=== PATIENT | female | born 1975 | race Caucasian/White ===

== ENCOUNTER 2017-09-09 08:00 | Outpatient (CLI) | payer OTHER ==
[2017-09-09 12:42] LABS: BASOPHILS % (AUTO) 0.5 %; EOSINOPHILS # (AUTO) 0.1 10^3/uL (0.0-0.7); EOSINOPHILS % (AUTO) 2.5 %; HGB - HEMOGLOBIN 11.5 g/dL (12.0-16.0); LYMPHOCYTES # (AUTO) 1.3 10^3/uL (1.5-3.5); LYMPHOCYTES % (AUTO) 23.7 %; MEAN CORPUSCULAR VOLUME 78.6 fL (81.0-99.0); MEAN PLATELET VOLUME 8.8 fL (7.9-10.8); MONOCYTES # (AUTO) 0.3 10^3/uL (0.0-1.0); MONOCYTES % (AUTO) 5.4 %; NEUTROPHILS # (AUTO) 3.8 10^3/uL (1.5-6.6); NEUTROPHILS % (AUTO) 67.9 %; PLT - PLATELET COUNT 272 10^3/uL (130-450); RED BLOOD COUNT 4.42 10^6/uL (4.20-5.40); RED CELL DISTRIBUTION WIDTH 15.5 % (12.0-15.0); WHITE BLOOD COUNT 5.5 x10^3/uL (4.8-10.8)
[2017-09-09 12:49] LABS: ALBUMIN 4.1 g/dL (3.2-5.5); ALBUMIN/GLOBULIN RATIO 1.4 (1.0-2.2); ALKALINE PHOSPHATASE 57 IU/L (42-121); ALT ALANINE AMINOTRANSFERASE 15 IU/L (10-60); AST ASPARTATE AMINOTRANSFERASE 17 IU/L (10-42); BILIRUBIN,TOTAL 0.8 mg/dL (0.2-1.0); BUN - BLOOD UREA NITROGEN 11 mg/dL (6-20); CALCIUM 8.7 mg/dL (8.5-10.3); CARBON DIOXIDE - CO2 26 mmol/L (21-32); CHLORIDE 103 mmol/L (101-111); CHOL/HDL RATIO 5.5 (<4.4); CHOLESTEROL 181 mg/dL; CREATININE 0.8 mg/dL (0.4-1.0); GFR - MDRD 79 (>89); GLUCOSE 105 mg/dL (70-100); HDL CHOLESTEROL 33 mg/dL; LDL CHOLESTEROL,CALCULATED 117 mg/dL; LDL/HDL RATIO 3.5 (<4.4); SODIUM 135 mmol/L (135-145); VLDL CHOLESTEROL 31 mg/dL
== END 2017-09-09 08:01 ==
LOC: LAB.WCP 08:00
PROVIDERS: ATTEND Family Medicine
DX: Z00.00 Encounter for general adult medical examination without abnormal findings (principal); F41.8 Other specified anxiety disorders; E66.9 Obesity, unspecified
CPT/HCPCS: 36415; 80053; 80061; 83721; 84443; 85025

== ENCOUNTER 2018-02-04 10:24 | Emergency (ER) | payer OTHER ==
[2018-02-04 10:39] VITALS: BP 152/100
--- NOTE | 2018-02-04 11:05 | XRAY Report ---
Reason: crush injury to toe Procedure Date: 02/04/2018 Accession Number: [id number] / [id number] Procedure: XR - Toe(s) RT CPT Code: FULL RESULT: EXAM: RIGHT FIRST TOE RADIOGRAPHY EXAM DATE: 02/04/2018 10:52 AM. CLINICAL HISTORY: Crush injury to toe. COMPARISON: None. TECHNIQUE: 3 views. FINDINGS: Bones: No acute fracture is demonstrated. Joints: No dislocation or subluxation. Soft Tissues: Unremarkable. IMPRESSION: No acute osseous or articular abnormality. RADIA
--- NOTE | 2018-02-04 11:38 | ED Physician Documentation ---
PD HPI LOWER EXT INJURY - Stated complaint Stated Complaint: R BIG TOE INJ - Chief complaint Chief Complaint: Ext Problem - History obtained from History obtained from: Patient - History of Present Illness PD HPI LOW EXT INJURY LOCATION: Right, Toe Type of injury: Blunt / blow Where injury occurred: Work Timing - onset: Today - Additional information Additional information: The patient is a 43-year-old female who smashed her right big toe on filing cabinet that was being moved this morning while at work. She has had pain, particularly with ambulation since that time. She denies any other injuries. Review of Systems Skin: denies: Laceration (s) Musculoskeletal: reports: Extremity pain (Right big toe.), Pain with weight bearing Neurologic: denies: Focal weakness, Numbness PD PAST MEDICAL HISTORY - Past Medical History Endocrine/Autoimmune: None - Present Medications Home Medications: Ambulatory Orders Medication Instructions Recorded Confirmed No Known Home Medications 02/04/18 02/04/18 - Allergies Allergies/Adverse Reactions: Allergies Allergy/AdvReac Type Severity Reaction Status Date / Time codeine Allergy Nausea Verified 02/04/18 10:40 Sulfa (Sulfonamide Allergy Anaphylaxis Verified 02/04/18 10:40 Antibiotics) PD ED PE NORMAL - Vitals Vital signs reviewed: Yes (hypertensive) - General General: Alert and oriented X 3, Well developed/nourished - HEENT HEENT: Atraumatic - Respiratory Respiratory: No respiratory distress - Derm Derm: No rash - Extremities Extremities: Other (There is tenderness to palpation, and slight swelling of the distal phalanx of the right big toe. The medial distal corner of the toenail is broken. There is no tenderness to palpation at the proximal aspect of the toe, or of the foot. Distal neurovascular is intact.) - Neuro Neuro: Alert and oriented X 3, No motor deficit, No sensory deficit Results - Vitals Vitals: Oxygen O2 Source Room air - Rads (name of study) Right big toe Radiology: Prelim report reviewed, EMP read contemporaneously, See rad report (No acute osseous or articular abnormality.) PD MEDICAL DECISION MAKING - ED course Complexity details: reviewed results, re-evaluated patient, considered differential, d/w patient ED course: The patient's presentation is most consistent with contusion to the right great toe. There is no evidence of bony abnormality on radiographic imaging. I discussed with the patient the expected course of injury, symptomatic treatment and outpatient follow-up, as well as potentially worrisome signs or symptoms that should prompt reevaluation in the emergency department. A labor and industries form was completed. Departure - Departure Disposition: 01 Home, Self Care Clinical Impression: Contusion, toe Qualifiers: Encounter type: initial encounter Toe: great toe Laterality: right Condition: Stable Instructions: ED Contusion Lower Ext Follow-Up: Zaynab Adkins DO [Primary Care Provider] - Comments: Keep your right foot elevated as much of the time as possible for the next 2 days. Apply ice pack intermittently. You can use ibuprofen, up to 800 mg 3 times daily for its anti-inflammatory effect. Follow-up with your primary physician or return to the emergency department if you develop markedly increasing pain, any sign of infection, or otherwise worsening symptoms. Forms: Activity restrictions Discharge Date/Time: 02/04/18 12:03
== END 2018-02-04 12:03 | disposition home or self-care (01) ==
LOC: ED 10:24
DX: S90.111A Contusion of right great toe without damage to nail, initial encounter (principal); W23.0XXA Caught, crushed, jammed, or pinched between moving objects, initial encounter; Y99.0 Civilian activity done for income or pay
CPT/HCPCS: 1040M; 73660; 99282

== ENCOUNTER 2022-01-21 09:44 | Emergency (ER) | payer MEDICAID, OTHER ==
[2022-01-21 09:52] VITALS: BP 151/77
--- OUTSIDE RECORDS SUMMARY | 2022-01-21 10:35 | EXTERNAL MEDICAL SUMMARY RPT | Continuity of Care Document ---
:1975 Author Organization [facility] Address [address] [place] [address] Phone Allergies No information. Encounters No information. Functional Status No information. Immunizations No information. Medications No information. Problems No information. Procedures No information. Results/Labs test date author facility value unit interpret ation Result panel 1 (unknown) (no date) (unknown) (unknown) 0 /uL (unkn own) (unknown) (no date) (unknown) (unknown) 0.6 % (unkn own) (unknown) (no date) (unknown) (unknown) 12.8 g/dL (unkn own) (unknown) (no date) (unknown) (unknown) 1300 /uL (unkn own) (unknown) (no date) (unknown) (unknown) 15.0 % (unkn own) (unknown) (no date) (unknown) (unknown) 17.3 % (unkn own) (unknown) (no date) (unknown) (unknown) 2.1 % (unkn own) (unknown) (no date) (unknown) (unknown) 200 /uL (unkn own) (unknown) (no date) (unknown) (unknown) 28.2 PG (unkn own) (unknown) (no date) (unknown) (unknown) 34.0 % (unkn own) (unknown) (no date) (unknown) (unknown) 343 X10 3/uL (unkn own) (unknown) (no date) (unknown) (unknown) 37.6 % (unkn own) (unknown) (no date) (unknown) (unknown) 4.53 X10 6/uL (unkn own) (unknown) (no date) (unknown) (unknown) 4.7 % (unkn own) (unknown) (no date) (unknown) (unknown) 400 /uL (unkn own) (unknown) (no date) (unknown) (unknown) 6600 /uL (unkn own) (unknown) (no date) (unknown) (unknown) 77.6 % (unkn own) (unknown) (no date) (unknown) (unknown) 8.5 X10 3/uL (unkn own) (unknown) (no date) (unknown) (unknown) 82.9 fL (unkn own) Result panel 2 (unknown) (no date) (unknown) (unknown) > 60 mL/min (unkn own) (unknown) (no date) (unknown) (unknown) 0.4 mg/dL (unkn own) (unknown) (no date) (unknown) (unknown) 0.83 mg/dL (unkn own) (unknown) (no date) (unknown) (unknown) 1.6 (units unknown) (unknown) (unknown) (no date) (unknown) (unknown) 10 mg/dL (unkn own) (unknown) (no date) (unknown) (unknown) 100 mmol/L (unkn own) (unknown) (no date) (unknown) (unknown) 111 mg/dL (unkn own) (unknown) (no date) (unknown) (unknown) 12.0 (units unknown) (unknown) (unknown) (no date) (unknown) (unknown) 137 mmol/L (unkn own) (unknown) (no date) (unknown) (unknown) 19 IU/L (unkn own) (unknown) (no date) (unknown) (unknown) 20 IU/L (unkn own) (unknown) (no date) (unknown) (unknown) 29 mmol/L (unkn own) (unknown) (no date) (unknown) (unknown) 3.0 g/dL (unkn own) (unknown) (no date) (unknown) (unknown) 3.5 mmol/L (unkn own) (unknown) (no date) (unknown) (unknown) 4.7 g/dL (unkn own) (unknown) (no date) (unknown) (unknown) 51 U/L (unkn own) (unknown) (no date) (unknown) (unknown) 7.7 g/dL (unkn own) (unknown) (no date) (unknown) (unknown) 9.4 mg/dL (unkn own) Result panel 3 (unknown) (no date) (unknown) (unknown) 57 ug/dL (unkn own) Result panel 4 (unknown) (no date) (unknown) (unknown) 18 % (unkn own) (unknown) (no date) (unknown) (unknown) 254 mg/dL (unkn own) (unknown) (no date) (unknown) (unknown) 311 ug/dL (unkn own) (unknown) (no date) (unknown) (unknown) 57 ug/dL (unkn own) Result panel 5 (unknown) (no date) (unknown) (unknown) > 60 mL/min (unkn own) (unknown) (no date) (unknown) (unknown) 0.4 mg/dL (unkn own) (unknown) (no date) (unknown) (unknown) 0.83 mg/dL (unkn own) (unknown) (no date) (unknown) (unknown) 1.6 (units unknown) (unknown) (unknown) (no date) (unknown) (unknown) 10 mg/dL (unkn own) (unknown) (no date) (unknown) (unknown) 100 mmol/L (unkn own) (unknown) (no date) (unknown) (unknown) 111 mg/dL (unkn own) (unknown) (no date) (unknown) (unknown) 12.0 (units unknown) (unknown) (unknown) (no date) (unknown) (unknown) 137 mmol/L (unkn own) (unknown) (no date) (unknown) (unknown) 19 IU/L (unkn own) (unknown) (no date) (unknown) (unknown) 20 IU/L (unkn own) (unknown) (no date) (unknown) (unknown) 29 mmol/L (unkn own) (unknown) (no date) (unknown) (unknown) 3.0 g/dL (unkn own) (unknown) (no date) (unknown) (unknown) 3.5 mmol/L (unkn own) (unknown) (no date) (unknown) (unknown) 4.7 g/dL (unkn own) (unknown) (no date) (unknown) (unknown) 51 U/L (unkn own) (unknown) (no date) (unknown) (unknown) 55 ng/mL (unkn own) (unknown) (no date) (unknown) (unknown) 7.7 g/dL (unkn own) (unknown) (no date) (unknown) (unknown) 9.4 mg/dL (unkn own) Result panel 6 (unknown) (no (unknown) (unknown) (no value) (units (unk nown) date) unknown) (unknown) (no (unknown) (unknown) Date of Service: (units (unknown) date) 10/30/21 unknown) (unknown) (no (unknown) (unknown) (no value) (units (unk nown) date) unknown) (unknown) (no (unknown) (unknown) Allergies (units (unkn own) date) unknown) (unknown) (no (unknown) (unknown) Home Medications (units (unknown) date) unknown) (unknown) (no (unknown) (unknown) [facility] (units (unknown) date) [address] unknown) [place] [address] (unknown) (no (unknown) (unknown) Laboratory Last (units (unknown) date) Values unknown) (unknown) (no (unknown) (unknown) Oncology Progress (units (unknown) date) Note unknown) (unknown) (no (unknown) (unknown) (no value) (units (unk nown) date) unknown) (unknown) (no (unknown) (unknown) #8.5 grams (units (unk nown) date) unknown) (unknown) (no (unknown) (unknown) Medication (units (unk nown) date) Instructions unknown) Recorded Confirmed Type (unknown) (no (unknown) (unknown) as a result of (units (unknown) date) uterine fibroid unknown) with heavy menstrual periods. (unknown) (no (unknown) (unknown) menstrual periods. (units (unknown) date) At present, she is unknown) having heavy periods but regular. She (unknown) (no (unknown) (unknown) % Saturation 18 % (units (unknown) date) (15-50) 10/24/21 unknown) 16:41 (unknown) (no (unknown) (unknown) (1) Iron (units (unkno wn) date) deficiency anemia unknown) (unknown) (no (unknown) (unknown) - Date of Visit (units (unknown) date) unknown) (unknown) (no (unknown) (unknown) - Labs (units (unkno wn) date) unknown) (unknown) (no (unknown) (unknown) - Patient (units (unkn own) date) Self-Reported unknown) Symptoms (unknown) (no (unknown) (unknown) [id number] (units (unkn own) date) unknown) (unknown) (no (unknown) (unknown) ALT 19 IU/L (<35) (units (unknown) date) 10/24/21 16:41 unknown) (unknown) (no (unknown) (unknown) ANTIBIOTICS)] (units ( unknown) date) unknown) (unknown) (no (unknown) (unknown) AST 20 IU/L (units (un known) date) (14-36) 10/24/21 unknown) 16:41 (unknown) (no (unknown) (unknown) Age/Sex: 46 / F (units (unknown) date) unknown) (unknown) (no (unknown) (unknown) Albumin 4.7 g/dL (units (unknown) date) (3.5-5.0) 10/24/21 unknown) 16:41 (unknown) (no (unknown) (unknown) Albumin/Globulin (units (unknown) date) Ratio 1.6 (1.0-2.8) unknown) 10/24/21 16:41 (unknown) (no (unknown) (unknown) Alkaline (units (unkno wn) date) Phosphatase 51 U/L unknown) (38-126) 10/24/21 16:41 (unknown) (no (unknown) (unknown) Allergy/AdvReac (units (unknown) date) Type Severity unknown) Reaction Status Date / Time (unknown) (no (unknown) (unknown) Antibiotics) (units (u nknown) date) unknown) (unknown) (no (unknown) (unknown) Assessment and (units (unknown) date) Plan unknown) (unknown) (no (unknown) (unknown) BUN 10 mg/dL (units (u nknown) date) (7-17) 10/24/21 unknown) 16:41 (unknown) (no (unknown) (unknown) BUN/Creatinine (units (unknown) date) Ratio 12.0 (6-22) unknown) 10/24/21 16:41 (unknown) (no (unknown) (unknown) Baso # (Auto) 0 (units (unknown) date) /uL (0-100) unknown) 10/24/21 16:41 (unknown) (no (unknown) (unknown) Baso % (Auto) 0.6 (units (unknown) date) % (0-2) 10/24/21 unknown) 16:41 (unknown) (no (unknown) (unknown) Calcium 9.4 mg/dL (units (unknown) date) (8.4-10.2) 10/24/21 unknown) 16:41 (unknown) (no (unknown) (unknown) Carbon Dioxide 29 (units (unknown) date) mmol/L (22-32) unknown) 10/24/21 16:41 (unknown) (no (unknown) (unknown) Chloride 100 (units (u nknown) date) mmol/L (98-107) unknown) 10/24/21 16:41 (unknown) (no (unknown) (unknown) Creatinine 0.83 (units (unknown) date) mg/dL (0.52-1.04) unknown) 10/24/21 16:41 (unknown) (no (unknown) (unknown) : 1975 (units (unknown) date) Acct:[id number] unknown) (unknown) (no (unknown) (unknown) Date of visit: (units (unknown) date) 10/30/21 unknown) (unknown) (no (unknown) (unknown) Discussion: (units (un known) date) unknown) (unknown) (no (unknown) (unknown) Eos # (Auto) 200 (units (unknown) date) /uL (0-450) unknown) 10/24/21 16:41 (unknown) (no (unknown) (unknown) Eos % (Auto) 2.1 % (units (unknown) date) (2-4) 10/24/21 unknown) 16:41 (unknown) (no (unknown) (unknown) Estimated GFR > 60 (units (unknown) date) mL/min (>60) unknown) 10/24/21 16:41 (unknown) (no (unknown) (unknown) Extreme swelling, (units (unknown) date) Dizzy/lightheaded unknown) (unknown) (no (unknown) (unknown) Ferritin 55 ng/mL (units (unknown) date) (6-137) 10/24/21 unknown) 16:41 (unknown) (no (unknown) (unknown) GenericComposite[P (units (unknown) date) lt Count 343 unknown) X10^3/uL (150-400) 10/24/21 16:41 ] (unknown) (no (unknown) (unknown) GenericComposite[R (units (unknown) date) BC 4.53 X10^6/uL unknown) (4.0-5.2) 10/24/21 16:41 ] (unknown) (no (unknown) (unknown) GenericComposite[W (units (unknown) date) BC 8.5 X10^3/uL unknown) (4.5-11.0) 10/24/21 16:41 ] (unknown) (no (unknown) (unknown) Globulin 3.0 g/dL (units (unknown) date) (1.7-4.1) 10/24/21 unknown) 16:41 (unknown) (no (unknown) (unknown) Glucose 111 mg/dL (units (unknown) date) (70-100) H 10/24/21 unknown) 16:41 (unknown) (no (unknown) (unknown) Hct 37.6 % (36-46) (units (unknown) date) 10/24/21 16:41 unknown) (unknown) (no (unknown) (unknown) Hgb 12.8 g/dL (units ( unknown) date) (12.0-16.0) unknown) 10/24/21 16:41 (unknown) (no (unknown) (unknown) Home Medications (units (unknown) date) and Allergies unknown) (unknown) (no (unknown) (unknown) I talked with her (units (unknown) date) that the iron unknown) deficiency anemia apparently is due to her heavy (unknown) (no (unknown) (unknown) Iron 57 ug/dL (units ( unknown) date) (37-170) 10/24/21 unknown) 16:41 (unknown) (no (unknown) (unknown) Lymph # (Auto) (units (unknown) date) 1300 /uL unknown) (6915-3303) 10/24/21 16:41 (unknown) (no (unknown) (unknown) Lymph % (Auto) (units (unknown) date) 15.0 % (25-40) L unknown) 10/24/21 16:41 (unknown) (no (unknown) (unknown) MCH 28.2 PG (units (un known) date) (26-34) 10/24/21 unknown) 16:41 (unknown) (no (unknown) (unknown) MCHC 34.0 % (units (un known) date) (30-36) 10/24/21 unknown) 16:41 (unknown) (no (unknown) (unknown) MCV 82.9 fL (units (un known) date) (80-100) 10/24/21 unknown) 16:41 (unknown) (no (unknown) (unknown) Sharkey # (Auto) 400 (units (unknown) date) /uL (0-900) unknown) 10/24/21 16:41 (unknown) (no (unknown) (unknown) Sharkey % (Auto) 4.7 (units (unknown) date) % (3-14) 10/24/21 unknown) 16:41 (unknown) (no (unknown) (unknown) Neut # (Auto) 6600 (units (unknown) date) /uL (0643-4813) unknown) 10/24/21 16:41 (unknown) (no (unknown) (unknown) Neut % (Auto) 77.6 (units (unknown) date) % (50-75) H unknown) 10/24/21 16:41 (unknown) (no (unknown) (unknown) PN -Subjective (units (unknown) date) unknown) (unknown) (no (unknown) (unknown) Patient: (units (unkno wn) date) Stephanie Rae unknown) MR#: M (unknown) (no (unknown) (unknown) Plan: (units (unkno wn) date) unknown) (unknown) (no (unknown) (unknown) Potassium 3.5 (units ( unknown) date) mmol/L (3.4-5.1) unknown) 10/24/21 16:41 (unknown) (no (unknown) (unknown) Provider: (units (unkn own) date) Duke Decker MD unknown) (unknown) (no (unknown) (unknown) RDW 17.3 % (units (unk nown) date) (11.6-14.8) H unknown) 10/24/21 16:41 (unknown) (no (unknown) (unknown) RTC in 3 months, (units (unknown) date) CBC, CMP, iron unknown) profile, ferritin (unknown) (no (unknown) (unknown) Results (units (unkno wn) date) unknown) (unknown) (no (unknown) (unknown) Rx (units (unkno wn) date) unknown) (unknown) (no (unknown) (unknown) SR Cardiovascular (units (unknown) date) issues: unknown) Palpitations, Chest pain, discomfort, tightness, (unknown) (no (unknown) (unknown) SR Constitution: (units (unknown) date) Fatigue/Malaise unknown) (unknown) (no (unknown) (unknown) SR Musculoskeletal (units (unknown) date) issues: Muscle pain unknown) or cramps, Back or neck pain (unknown) (no (unknown) (unknown) SR Neuro issues: (units (unknown) date) Headache, unknown) Lightheaded/dizzy, Numbness or tingling (unknown) (no (unknown) (unknown) SR ears, nose, (units (unknown) date) mouth, throat unknown) issues: Ears ringing, Congestion, Cough (unknown) (no (unknown) (unknown) Tatyana is a (units (unkn own) date) 46-year-old female unknown) with obesity, heavy menstrual periods, asthma, (unknown) (no (unknown) (unknown) Signed By: (units (unk nown) date) unknown) (unknown) (no (unknown) (unknown) Sodium 137 mmol/L (units (unknown) date) (137-145) 10/24/21 unknown) 16:41 (unknown) (no (unknown) (unknown) Sulfa (Sulfonamide (units (unknown) date) Allergy unknown) Intermediate SOB Verified 08/05/21 09:40 (unknown) (no (unknown) (unknown) TIBC 311 ug/dL (units (unknown) date) (265-497) 10/24/21 unknown) 16:41 (unknown) (no (unknown) (unknown) Total Bilirubin (units (unknown) date) 0.4 mg/dL (0.2-1.3) unknown) 10/24/21 16:41 (unknown) (no (unknown) (unknown) Total Protein 7.7 (units (unknown) date) g/dL (6.3-8.2) unknown) 10/24/21 16:41 (unknown) (no (unknown) (unknown) Transferrin 254 (units (unknown) date) mg/dL (206-381) unknown) 10/24/21 16:41 (unknown) (no (unknown) (unknown) Venofer 200 mg iv (units (unknown) date) weekly x 5, unknown) starting next (unknown) (no (unknown) (unknown) [SULFA (units (unkno wn) date) (SULFONAMIDE unknown) (unknown) (no (unknown) (unknown) adhesive (units (unkno wn) date) [ADHESIVE] AdvReac unknown) Mild local welt Verified 08/05/21 09:40 (unknown) (no (unknown) (unknown) aerosol inhaler (units (unknown) date) (Proventil HFA) unknown) shortness of breath or wheezing (unknown) (no (unknown) (unknown) albuterol sulfate (units (unknown) date) 90 mcg/actuation 2 unknown) puff inhalation Q4-6H PRN 12/23/20 08/05/21 (unknown) (no (unknown) (unknown) amoxicillin 875 (units (unknown) date) mg-potassium 1 tab unknown) PO BID #20 tabs 08/05/21 08/05/21 Rx (unknown) (no (unknown) (unknown) been on oral iron (units (unknown) date) supplementations unknown) for years and has been experiencing some (unknown) (no (unknown) (unknown) cholecalciferol (units (unknown) date) (vitamin D3) 25 unknown) 5,000 unit PO DAILY 11/21/20 08/05/21 History (unknown) (no (unknown) (unknown) clavulanate 125 mg (units (unknown) date) tablet unknown) (unknown) (no (unknown) (unknown) consideration of (units (unknown) date) intravenous iron unknown) infusion for her severe iron deficiency anemia (unknown) (no (unknown) (unknown) d-mannose 500 mg (units (unknown) date) capsule mg PO unknown) 11/21/20 08/05/21 History (unknown) (no (unknown) (unknown) fluoxetine 10 mg (units (unknown) date) capsule (Prozac) 10 unknown) mg PO DAILY #90 caps 07/15/21 08/05/21 Rx (unknown) (no (unknown) (unknown) fluoxetine 20 mg (units (unknown) date) capsule (Prozac) 20 unknown) mg PO DAILY #90 caps 07/15/21 08/05/21 Rx (unknown) (no (unknown) (unknown) has no immediate (units (unknown) date) plans to get unknown) surgical intervention, and she is not interested (unknown) (no (unknown) (unknown) hypertension, and (units (unknown) date) possible sleep unknown) apnea. She was referred to our clinic for (unknown) (no (unknown) (unknown) in hormone (units (unk nown) date) treatment. Her iron unknown) panels showed severe iron deficiency. She has (unknown) (no (unknown) (unknown) losartan 100 1 tab (units (unknown) date) PO DAILY #90 tabs unknown) 07/15/21 08/05/21 Rx (unknown) (no (unknown) (unknown) mcg (1,000 unit) (units (unknown) date) capsule unknown) (unknown) (no (unknown) (unknown) metoprolol (units (unk nown) date) succinate 25 mg 50 unknown) mg PO DAILY #90 tabs 06/23/21 08/05/21 Rx (unknown) (no (unknown) (unknown) mg-hydrochlorothia (units (unknown) date) zide 25 mg tablet unknown) (unknown) (no (unknown) (unknown) months and (units (unk nown) date) re-evaluate the unknown) need for more iron infusion. (unknown) (no (unknown) (unknown) multivitamin (units (u nknown) date) (Multiple Vitamins unknown) 1 tab PO QDAY ##0 06/15/16 08/05/21 History (unknown) (no (unknown) (unknown) nausea. I agree (units (unknown) date) with Dr. Kay unknown) that intravenous iron infusion is indicated. I (unknown) (no (unknown) (unknown) recommended (units (un known) date) Venofer for a total unknown) of 1 grams. I will see the patient in about 3 (unknown) (no (unknown) (unknown) rizatriptan 10 mg (units (unknown) date) tablet 10 mg PO unknown) .prn headache #30 tabs 05/29/21 08/05/21 Rx (unknown) (no (unknown) (unknown) tablet) (units (unkno wn) date) unknown) (unknown) (no (unknown) (unknown) tablet,extended (units (unknown) date) release 24 hr unknown) (unknown) (no (unknown) (unknown) verapamil 40 mg (units (unknown) date) tablet 40 mg PO TID unknown) #270 tabs 05/29/21 08/05/21 Rx Result panel 7 (unknown) (no (unknown) (unknown) (no value) (units (unk nown) date) unknown) (unknown) (no (unknown) (unknown) Date of Service: (units (unknown) date) 10/30/21 unknown) (unknown) (no (unknown) (unknown) (no value) (units (unk nown) date) unknown) (unknown) (no (unknown) (unknown) Allergies (units (unkn own) date) unknown) (unknown) (no (unknown) (unknown) Home Medications (units (unknown) date) unknown) (unknown) (no (unknown) (unknown) [facility] (units (unknown) date) [address] [place] [address] Street unknown) [place] [address] (unknown) (no (unknown) (unknown) Laboratory Last (units (unknown) date) Values unknown) (unknown) (no (unknown) (unknown) Oncology Progress (units (unknown) date) Note unknown) (unknown) (no (unknown) (unknown) (no value) (units (unk nown) date) unknown) (unknown) (no (unknown) (unknown) #8.5 grams (units (unk nown) date) unknown) (unknown) (no (unknown) (unknown) Medication (units (unk nown) date) Instructions unknown) Recorded Confirmed Type (unknown) (no (unknown) (unknown) as a result of (units (unknown) date) uterine fibroid unknown) with heavy menstrual periods. (unknown) (no (unknown) (unknown) % Saturation 18 % (units (unknown) date) (15-50) 10/24/21 unknown) 16:41 (unknown) (no (unknown) (unknown) (1) Iron (units (unkno wn) date) deficiency anemia unknown) (unknown) (no (unknown) (unknown) (2) Bruises (units (un known) date) easily unknown) (unknown) (no (unknown) (unknown) - Date of Visit (units (unknown) date) unknown) (unknown) (no (unknown) (unknown) - Labs (units (unkno wn) date) unknown) (unknown) (no (unknown) (unknown) - Patient (units (unkn own) date) Self-Reported unknown) Symptoms (unknown) (no (unknown) (unknown) [id number] (units (unkn own) date) unknown) (unknown) (no (unknown) (unknown) ALT 19 IU/L (<35) (units (unknown) date) 10/24/21 16:41 unknown) (unknown) (no (unknown) (unknown) ANTIBIOTICS)] (units ( unknown) date) unknown) (unknown) (no (unknown) (unknown) AST 20 IU/L (units (un known) date) (14-36) 10/24/21 unknown) 16:41 (unknown) (no (unknown) (unknown) Age/Sex: 46 / F (units (unknown) date) unknown) (unknown) (no (unknown) (unknown) Albumin 4.7 g/dL (units (unknown) date) (3.5-5.0) 10/24/21 unknown) 16:41 (unknown) (no (unknown) (unknown) Albumin/Globulin (units (unknown) date) Ratio 1.6 unknown) (1.0-2.8) 10/24/21 16:41 (unknown) (no (unknown) (unknown) Alkaline (units (unkno wn) date) Phosphatase 51 U/L unknown) (38-126) 10/24/21 16:41 (unknown) (no (unknown) (unknown) Allergy/AdvReac (units (unknown) date) Type Severity unknown) Reaction Status Date / Time (unknown) (no (unknown) (unknown) Antibiotics) (units (u nknown) date) unknown) (unknown) (no (unknown) (unknown) Assessment and (units (unknown) date) Plan unknown) (unknown) (no (unknown) (unknown) BUN 10 mg/dL (units (u nknown) date) (7-17) 10/24/21 unknown) 16:41 (unknown) (no (unknown) (unknown) BUN/Creatinine (units (unknown) date) Ratio 12.0 (6-22) unknown) 10/24/21 16:41 (unknown) (no (unknown) (unknown) Baso # (Auto) 0 (units (unknown) date) /uL (0-100) unknown) 10/24/21 16:41 (unknown) (no (unknown) (unknown) Baso % (Auto) 0.6 (units (unknown) date) % (0-2) 10/24/21 unknown) 16:41 (unknown) (no (unknown) (unknown) Calcium 9.4 mg/dL (units (unknown) date) (8.4-10.2) unknown) 10/24/21 16:41 (unknown) (no (unknown) (unknown) Carbon Dioxide 29 (units (unknown) date) mmol/L (22-32) unknown) 10/24/21 16:41 (unknown) (no (unknown) (unknown) Chloride 100 (units (u nknown) date) mmol/L (98-107) unknown) 10/24/21 16:41 (unknown) (no (unknown) (unknown) Creatinine 0.83 (units (unknown) date) mg/dL (0.52-1.04) unknown) 10/24/21 16:41 (unknown) (no (unknown) (unknown) : 1975 (units (unknown) date) Acct:[id number] unknown) (unknown) (no (unknown) (unknown) Date of visit: (units (unknown) date) 10/30/21 unknown) (unknown) (no (unknown) (unknown) Discussion: (units (un known) date) unknown) (unknown) (no (unknown) (unknown) Eos # (Auto) 200 (units (unknown) date) /uL (0-450) unknown) 10/24/21 16:41 (unknown) (no (unknown) (unknown) Eos % (Auto) 2.1 (units (unknown) date) % (2-4) 10/24/21 unknown) 16:41 (unknown) (no (unknown) (unknown) Estimated GFR > (units (unknown) date) 60 mL/min (>60) unknown) 10/24/21 16:41 (unknown) (no (unknown) (unknown) Extreme swelling, (units (unknown) date) Dizzy/lightheaded unknown) (unknown) (no (unknown) (unknown) Ferritin 55 ng/mL (units (unknown) date) (6-137) 10/24/21 unknown) 16:41 (unknown) (no (unknown) (unknown) GenericComposite[ (units (unknown) date) Plt Count 343 unknown) X10^3/uL (150-400) 10/24/21 16:41 ] (unknown) (no (unknown) (unknown) GenericComposite[ (units (unknown) date) RBC 4.53 X10^6/uL unknown) (4.0-5.2) 10/24/21 16:41 ] (unknown) (no (unknown) (unknown) GenericComposite[ (units (unknown) date) WBC 8.5 X10^3/uL unknown) (4.5-11.0) 10/24/21 16:41 ] (unknown) (no (unknown) (unknown) Globulin 3.0 g/dL (units (unknown) date) (1.7-4.1) 10/24/21 unknown) 16:41 (unknown) (no (unknown) (unknown) Glucose 111 mg/dL (units (unknown) date) (70-100) H unknown) 10/24/21 16:41 (unknown) (no (unknown) (unknown) Hct 37.6 % (units (unk nown) date) (36-46) 10/24/21 unknown) 16:41 (unknown) (no (unknown) (unknown) Hgb 12.8 g/dL (units ( unknown) date) (12.0-16.0) unknown) 10/24/21 16:41 (unknown) (no (unknown) (unknown) Home Medications (units (unknown) date) and Allergies unknown) (unknown) (no (unknown) (unknown) However patient (units (unknown) date) still has a low unknown) iron saturation and low ferritin level. I (unknown) (no (unknown) (unknown) I explained to (units (unknown) date) the patient and unknown) bruises can be caused by several different (unknown) (no (unknown) (unknown) Iron 57 ug/dL (units ( unknown) date) (37-170) 10/24/21 unknown) 16:41 (unknown) (no (unknown) (unknown) Lymph # (Auto) (units (unknown) date) 1300 /uL unknown) (7563-1768) 10/24/21 16:41 (unknown) (no (unknown) (unknown) Lymph % (Auto) (units (unknown) date) 15.0 % (25-40) L unknown) 10/24/21 16:41 (unknown) (no (unknown) (unknown) MCH 28.2 PG (units (un known) date) (26-34) 10/24/21 unknown) 16:41 (unknown) (no (unknown) (unknown) MCHC 34.0 % (units (un known) date) (30-36) 10/24/21 unknown) 16:41 (unknown) (no (unknown) (unknown) MCV 82.9 fL (units (un known) date) (80-100) 10/24/21 unknown) 16:41 (unknown) (no (unknown) (unknown) Sharkey # (Auto) 400 (units (unknown) date) /uL (0-900) unknown) 10/24/21 16:41 (unknown) (no (unknown) (unknown) Sharkey % (Auto) 4.7 (units (unknown) date) % (3-14) 10/24/21 unknown) 16:41 (unknown) (no (unknown) (unknown) Neut # (Auto) (units ( unknown) date) 6600 /uL unknown) (2682-2635) 10/24/21 16:41 (unknown) (no (unknown) (unknown) Neut % (Auto) (units ( unknown) date) 77.6 % (50-75) H unknown) 10/24/21 16:41 (unknown) (no (unknown) (unknown) PN -Subjective (units (unknown) date) unknown) (unknown) (no (unknown) (unknown) Patient completed (units (unknown) date) 5 weekly infusions unknown) of Venofer in September. Patient presents here (unknown) (no (unknown) (unknown) Patient: (units (unkno wn) date) Stephanie Rae K unknown) MR#: M (unknown) (no (unknown) (unknown) Plan: (units (unkno wn) date) unknown) (unknown) (no (unknown) (unknown) Potassium 3.5 (units ( unknown) date) mmol/L (3.4-5.1) unknown) 10/24/21 16:41 (unknown) (no (unknown) (unknown) Provider: (units (unkn own) date) Duke Decekr MD unknown) (unknown) (no (unknown) (unknown) RDW 17.3 % (units (unk nown) date) (11.6-14.8) H unknown) 10/24/21 16:41 (unknown) (no (unknown) (unknown) RTC in 3 months, (units (unknown) date) CBC, CMP, iron unknown) profile, ferritin (unknown) (no (unknown) (unknown) Results (units (unkno wn) date) unknown) (unknown) (no (unknown) (unknown) Rx (units (unkno wn) date) unknown) (unknown) (no (unknown) (unknown) SR Cardiovascular (units (unknown) date) issues: unknown) Palpitations, Chest pain, discomfort, tightness, (unknown) (no (unknown) (unknown) SR Constitution: (units (unknown) date) Fatigue/Malaise unknown) (unknown) (no (unknown) (unknown) SR (units (unkno wn) date) Musculoskeletal unknown) issues: Muscle pain or cramps, Back or neck pain (unknown) (no (unknown) (unknown) SR Neuro issues: (units (unknown) date) Headache, unknown) Lightheaded/dizzy, Numbness or tingling (unknown) (no (unknown) (unknown) SR ears, nose, (units (unknown) date) mouth, throat unknown) issues: Ears ringing, Congestion, Cough (unknown) (no (unknown) (unknown) Tatyana is a (units (unkn own) date) 46-year-old female unknown) with obesity, heavy menstrual periods, asthma, (unknown) (no (unknown) (unknown) Signed By: (units (unk nown) date) unknown) (unknown) (no (unknown) (unknown) Sodium 137 mmol/L (units (unknown) date) (137-145) 10/24/21 unknown) 16:41 (unknown) (no (unknown) (unknown) Sulfa (units (unkno wn) date) (Sulfonamide unknown) Allergy Intermediate SOB Verified 08/05/21 09:40 (unknown) (no (unknown) (unknown) TIBC 311 ug/dL (units (unknown) date) (265-497) 10/24/21 unknown) 16:41 (unknown) (no (unknown) (unknown) Total Bilirubin (units (unknown) date) 0.4 mg/dL unknown) (0.2-1.3) 10/24/21 16:41 (unknown) (no (unknown) (unknown) Total Protein 7.7 (units (unknown) date) g/dL (6.3-8.2) unknown) 10/24/21 16:41 (unknown) (no (unknown) (unknown) Transferrin 254 (units (unknown) date) mg/dL (206-381) unknown) 10/24/21 16:41 (unknown) (no (unknown) (unknown) Venofer 200 mg iv (units (unknown) date) weekly x 5, unknown) starting next (unknown) (no (unknown) (unknown) [SULFA (units (unkno wn) date) (SULFONAMIDE unknown) (unknown) (no (unknown) (unknown) adhesive (units (unkno wn) date) [ADHESIVE] AdvReac unknown) Mild local welt Verified 08/05/21 09:40 (unknown) (no (unknown) (unknown) aerosol inhaler (units (unknown) date) (Proventil HFA) unknown) shortness of breath or wheezing (unknown) (no (unknown) (unknown) albuterol sulfate (units (unknown) date) 90 mcg/actuation 2 unknown) puff inhalation Q4-6H PRN 12/23/20 08/05/21 (unknown) (no (unknown) (unknown) cholecalciferol (units (unknown) date) (vitamin D3) 25 unknown) 5,000 unit PO DAILY 11/21/20 08/05/21 History (unknown) (no (unknown) (unknown) consideration of (units (unknown) date) intravenous iron unknown) infusion for her severe iron deficiency anemia (unknown) (no (unknown) (unknown) d-mannose 500 mg (units (unknown) date) capsule mg PO unknown) 11/21/20 08/05/21 History (unknown) (no (unknown) (unknown) deficiency still (units (unknown) date) could be 1 of the unknown) reasons. I am recommending another round of (unknown) (no (unknown) (unknown) first. (units (unkno wn) date) unknown) (unknown) (no (unknown) (unknown) fluoxetine 10 mg (units (unknown) date) capsule (Prozac) unknown) 10 mg PO DAILY #90 caps 07/15/21 08/05/21 Rx (unknown) (no (unknown) (unknown) fluoxetine 20 mg (units (unknown) date) capsule (Prozac) unknown) 20 mg PO DAILY #90 caps 07/15/21 08/05/21 Rx (unknown) (no (unknown) (unknown) hypertension, and (units (unknown) date) possible sleep unknown) apnea. She was referred to our clinic for (unknown) (no (unknown) (unknown) iron infusions. (units (unknown) date) The goal is to unknown) keep the saturation above 20% and or ferritin (unknown) (no (unknown) (unknown) laboratory tests (units (unknown) date) including CBC and unknown) iron panels showed significant improvement. (unknown) (no (unknown) (unknown) level above 100. (units (unknown) date) Patient voiced unknown) understanding and agreement. (unknown) (no (unknown) (unknown) losartan 100 1 (units (unknown) date) tab PO DAILY #90 unknown) tabs 07/15/21 08/05/21 Rx (unknown) (no (unknown) (unknown) mcg (1,000 unit) (units (unknown) date) capsule unknown) (unknown) (no (unknown) (unknown) metoprolol (units (unk nown) date) succinate 25 mg 50 unknown) mg PO DAILY #90 tabs 06/23/21 08/05/21 Rx (unknown) (no (unknown) (unknown) mg-hydrochlorothi (units (unknown) date) azide 25 mg tablet unknown) (unknown) (no (unknown) (unknown) multivitamin (units (u nknown) date) (Multiple Vitamins unknown) 1 tab PO QDAY ##0 06/15/16 08/05/21 History (unknown) (no (unknown) (unknown) reasons including (units (unknown) date) liver function, unknown) medications, steroid use, etc.. I am (unknown) (no (unknown) (unknown) recommending that (units (unknown) date) we continue to unknown) monitor at this point I will check PT PTT (unknown) (no (unknown) (unknown) rizatriptan 10 mg (units (unknown) date) tablet 10 mg PO unknown) .prn headache #30 tabs 05/29/21 08/05/21 Rx (unknown) (no (unknown) (unknown) tablet) (units (unkno wn) date) unknown) (unknown) (no (unknown) (unknown) tablet,extended (units (unknown) date) release 24 hr unknown) (unknown) (no (unknown) (unknown) talked with her (units (unknown) date) that the fatigue unknown) could be due to other factors, but iron (unknown) (no (unknown) (unknown) today for (units (unkn own) date) scheduled unknown) follow-up visit. Explained to the patient that the (unknown) (no (unknown) (unknown) verapamil 40 mg (units (unknown) date) tablet 40 mg PO unknown) TID #270 tabs 05/29/21 08/05/21 Rx Result panel 8 (unknown) (no (unknown) (unknown) (no value) (units (unk nown) date) unknown) (unknown) (no (unknown) (unknown) Date of Service: (units (unknown) date) 10/30/21 unknown) (unknown) (no (unknown) (unknown) (no value) (units (unk nown) date) unknown) (unknown) (no (unknown) (unknown) Allergies (units (unkn own) date) unknown) (unknown) (no (unknown) (unknown) Home Medications (units (unknown) date) unknown) (unknown) (no (unknown) (unknown) [facility] (units (unknown) date) [address] unknown) [place] [address] (unknown) (no (unknown) (unknown) Laboratory Last (units (unknown) date) Values unknown) (unknown) (no (unknown) (unknown) Oncology Progress (units (unknown) date) Note unknown) (unknown) (no (unknown) (unknown) (no value) (units (unk nown) date) unknown) (unknown) (no (unknown) (unknown) #8.5 grams (units (unk nown) date) unknown) (unknown) (no (unknown) (unknown) Medication (units (unk nown) date) Instructions unknown) Recorded Confirmed Type (unknown) (no (unknown) (unknown) as a result of (units (unknown) date) uterine fibroid unknown) with heavy menstrual periods. (unknown) (no (unknown) (unknown) % Saturation 18 % (units (unknown) date) (15-50) 10/24/21 unknown) 16:41 (unknown) (no (unknown) (unknown) (1) Iron (units (unkno wn) date) deficiency anemia unknown) (unknown) (no (unknown) (unknown) (2) Bruises (units (un known) date) easily unknown) (unknown) (no (unknown) (unknown) - Date of Visit (units (unknown) date) unknown) (unknown) (no (unknown) (unknown) - Labs (units (unkno wn) date) unknown) (unknown) (no (unknown) (unknown) - Patient (units (unkn own) date) Self-Reported unknown) Symptoms (unknown) (no (unknown) (unknown) [id number] (units (unkn own) date) unknown) (unknown) (no (unknown) (unknown) 01/01/2021. Since (units (unknown) date) patient had not unknown) tried endocrine therapy. Dr. Barrera (unknown) (no (unknown) (unknown) ALT 19 IU/L (<35) (units (unknown) date) 10/24/21 16:41 unknown) (unknown) (no (unknown) (unknown) ANTIBIOTICS)] (units ( unknown) date) unknown) (unknown) (no (unknown) (unknown) AST 20 IU/L (units (un known) date) (14-36) 10/24/21 unknown) 16:41 (unknown) (no (unknown) (unknown) Age/Sex: 46 / F (units (unknown) date) unknown) (unknown) (no (unknown) (unknown) Albumin 4.7 g/dL (units (unknown) date) (3.5-5.0) 10/24/21 unknown) 16:41 (unknown) (no (unknown) (unknown) Albumin/Globulin (units (unknown) date) Ratio 1.6 unknown) (1.0-2.8) 10/24/21 16:41 (unknown) (no (unknown) (unknown) Alkaline (units (unkno wn) date) Phosphatase 51 U/L unknown) (38-126) 10/24/21 16:41 (unknown) (no (unknown) (unknown) Allergy/AdvReac (units (unknown) date) Type Severity unknown) Reaction Status Date / Time (unknown) (no (unknown) (unknown) Antibiotics) (units (u nknown) date) unknown) (unknown) (no (unknown) (unknown) Assessment and (units (unknown) date) Plan unknown) (unknown) (no (unknown) (unknown) BUN 10 mg/dL (units (u nknown) date) (7-17) 10/24/21 unknown) 16:41 (unknown) (no (unknown) (unknown) BUN/Creatinine (units (unknown) date) Ratio 12.0 (6-22) unknown) 10/24/21 16:41 (unknown) (no (unknown) (unknown) Baso # (Auto) 0 (units (unknown) date) /uL (0-100) unknown) 10/24/21 16:41 (unknown) (no (unknown) (unknown) Baso % (Auto) 0.6 (units (unknown) date) % (0-2) 10/24/21 unknown) 16:41 (unknown) (no (unknown) (unknown) Calcium 9.4 mg/dL (units (unknown) date) (8.4-10.2) unknown) 10/24/21 16:41 (unknown) (no (unknown) (unknown) Carbon Dioxide 29 (units (unknown) date) mmol/L (22-32) unknown) 10/24/21 16:41 (unknown) (no (unknown) (unknown) Chief Complaint: (units (unknown) date) Stephanie is a 46 year unknown) old female with iron deficiency anemia (unknown) (no (unknown) (unknown) Chloride 100 (units (u nknown) date) mmol/L (98-107) unknown) 10/24/21 16:41 (unknown) (no (unknown) (unknown) Creatinine 0.83 (units (unknown) date) mg/dL (0.52-1.04) unknown) 10/24/21 16:41 (unknown) (no (unknown) (unknown) : 1975 (units (unknown) date) Acct:[id number] unknown) (unknown) (no (unknown) (unknown) Date of visit: (units (unknown) date) 10/30/21 unknown) (unknown) (no (unknown) (unknown) Discussion: (units (un known) date) unknown) (unknown) (no (unknown) (unknown) Eos # (Auto) 200 (units (unknown) date) /uL (0-450) unknown) 10/24/21 16:41 (unknown) (no (unknown) (unknown) Eos % (Auto) 2.1 (units (unknown) date) % (2-4) 10/24/21 unknown) 16:41 (unknown) (no (unknown) (unknown) Estimated GFR > (units (unknown) date) 60 mL/min (>60) unknown) 10/24/21 16:41 (unknown) (no (unknown) (unknown) Extreme swelling, (units (unknown) date) Dizzy/lightheaded unknown) (unknown) (no (unknown) (unknown) [place] (units (unknown) date) evaluated the unknown) patient in 07/2020 and referred Stephanie to [place] (unknown) (no (unknown) (unknown) Ferritin 55 ng/mL (units (unknown) date) (6-137) 10/24/21 unknown) 16:41 (unknown) (no (unknown) (unknown) GenericComposite[ (units (unknown) date) Plt Count 343 unknown) X10^3/uL (150-400) 10/24/21 16:41 ] (unknown) (no (unknown) (unknown) GenericComposite[ (units (unknown) date) RBC 4.53 X10^6/uL unknown) (4.0-5.2) 10/24/21 16:41 ] (unknown) (no (unknown) (unknown) GenericComposite[ (units (unknown) date) WBC 8.5 X10^3/uL unknown) (4.5-11.0) 10/24/21 16:41 ] (unknown) (no (unknown) (unknown) Globulin 3.0 g/dL (units (unknown) date) (1.7-4.1) 10/24/21 unknown) 16:41 (unknown) (no (unknown) (unknown) Glucose 111 mg/dL (units (unknown) date) (70-100) H unknown) 10/24/21 16:41 (unknown) (no (unknown) (unknown) Gynecology as (units ( unknown) date) patient desired unknown) surgical management. (unknown) (no (unknown) (unknown) Hct 37.6 % (units (unk nown) date) (36-46) 10/24/21 unknown) 16:41 (unknown) (no (unknown) (unknown) Hgb 12.8 g/dL (units ( unknown) date) (12.0-16.0) unknown) 10/24/21 16:41 (unknown) (no (unknown) (unknown) Home Medications (units (unknown) date) and Allergies unknown) (unknown) (no (unknown) (unknown) However patient (units (unknown) date) still has a low unknown) iron saturation and low ferritin level. I (unknown) (no (unknown) (unknown) I explained to (units (unknown) date) the patient and unknown) bruises can be caused by several different (unknown) (no (unknown) (unknown) Interval history: (units (unknown) date) unknown) (unknown) (no (unknown) (unknown) Iron 57 ug/dL (units ( unknown) date) (37-170) 10/24/21 unknown) 16:41 (unknown) (no (unknown) (unknown) Lymph # (Auto) (units (unknown) date) 1300 /uL unknown) (5571-8910) 10/24/21 16:41 (unknown) (no (unknown) (unknown) Lymph % (Auto) (units (unknown) date) 15.0 % (25-40) L unknown) 10/24/21 16:41 (unknown) (no (unknown) (unknown) MCH 28.2 PG (units (un known) date) (26-34) 10/24/21 unknown) 16:41 (unknown) (no (unknown) (unknown) MCHC 34.0 % (units (un known) date) (30-36) 10/24/21 unknown) 16:41 (unknown) (no (unknown) (unknown) MCV 82.9 fL (units (un known) date) (80-100) 10/24/21 unknown) 16:41 (unknown) (no (unknown) (unknown) Sharkey # (Auto) 400 (units (unknown) date) /uL (0-900) unknown) 10/24/21 16:41 (unknown) (no (unknown) (unknown) Sharkey % (Auto) 4.7 (units (unknown) date) % (3-14) 10/24/21 unknown) 16:41 (unknown) (no (unknown) (unknown) Narrative: (units (unk nown) date) unknown) (unknown) (no (unknown) (unknown) Neut # (Auto) (units ( unknown) date) 6600 /uL unknown) ([id number]) 10/24/21 16:41 (unknown) (no (unknown) (unknown) Neut % (Auto) (units ( unknown) date) 77.6 % (50-75) H unknown) 10/24/21 16:41 (unknown) (no (unknown) (unknown) PN -Subjective (units (unknown) date) unknown) (unknown) (no (unknown) (unknown) Patient completed (units (unknown) date) 5 weekly infusions unknown) of Venofer in September. Patient presents here (unknown) (no (unknown) (unknown) Patient: (units (unkno wn) date) Stephanie Rae unknown) MR#: [id number] (unknown) (no (unknown) (unknown) Plan: (units (unkno wn) date) unknown) (unknown) (no (unknown) (unknown) Potassium 3.5 (units ( unknown) date) mmol/L (3.4-5.1) unknown) 10/24/21 16:41 (unknown) (no (unknown) (unknown) Provider: (units (unkn own) date) Duke Decker MD unknown) (unknown) (no (unknown) (unknown) RDW 17.3 % (units (unk nown) date) (11.6-14.8) H unknown) 10/24/21 16:41 (unknown) (no (unknown) (unknown) RTC in 3 months, (units (unknown) date) CBC, CMP, iron unknown) profile, ferritin (unknown) (no (unknown) (unknown) Results (units (unkno wn) date) unknown) (unknown) (no (unknown) (unknown) Rx (units (unkno wn) date) unknown) (unknown) (no (unknown) (unknown) SR Cardiovascular (units (unknown) date) issues: unknown) Palpitations, Chest pain, discomfort, tightness, (unknown) (no (unknown) (unknown) SR Constitution: (units (unknown) date) Fatigue/Malaise unknown) (unknown) (no (unknown) (unknown) SR (units (unkno wn) date) Musculoskeletal unknown) issues: Muscle pain or cramps, Back or neck pain (unknown) (no (unknown) (unknown) SR Neuro issues: (units (unknown) date) Headache, unknown) Lightheaded/dizzy, Numbness or tingling (unknown) (no (unknown) (unknown) SR ears, nose, (units (unknown) date) mouth, throat unknown) issues: Ears ringing, Congestion, Cough (unknown) (no (unknown) (unknown) Tatyana is a (units (unkn own) date) 46-year-old female unknown) with obesity, heavy menstrual periods, asthma, (unknown) (no (unknown) (unknown) Stephanie Rae (units (unknown) date) is a 46 year old unknown) female with history of hypertension, (unknown) (no (unknown) (unknown) She has been (units (un known) date) taking oral iron unknown) 1# daily for years. It is not working per patient. (unknown) (no (unknown) (unknown) She has noticed (units (unknown) date) that she usually unknown) takes iron pills with food; if taking empty (unknown) (no (unknown) (unknown) She was evaluated (units (unknown) date) by pot puller unknown) Dr. Jf Barrera at [place], [place] on (unknown) (no (unknown) (unknown) Signed By: (units (unk nown) date) unknown) (unknown) (no (unknown) (unknown) Sodium 137 mmol/L (units (unknown) date) (137-145) 10/24/21 unknown) 16:41 (unknown) (no (unknown) (unknown) Sulfa (units (unkno wn) date) (Sulfonamide unknown) Allergy Intermediate SOB Verified 08/05/21 09:40 (unknown) (no (unknown) (unknown) TIBC 311 ug/dL (units (unknown) date) (265-497) 10/24/21 unknown) 16:41 (unknown) (no (unknown) (unknown) Total Bilirubin (units (unknown) date) 0.4 mg/dL unknown) (0.2-1.3) 10/24/21 16:41 (unknown) (no (unknown) (unknown) Total Protein 7.7 (units (unknown) date) g/dL (6.3-8.2) unknown) 10/24/21 16:41 (unknown) (no (unknown) (unknown) Transferrin 254 (units (unknown) date) mg/dL (206-381) unknown) 10/24/21 16:41 (unknown) (no (unknown) (unknown) Venofer 200 mg iv (units (unknown) date) weekly x 5, unknown) starting next (unknown) (no (unknown) (unknown) [SULFA (units (unkno wn) date) (SULFONAMIDE unknown) (unknown) (no (unknown) (unknown) adhesive (units (unkno wn) date) [ADHESIVE] AdvReac unknown) Mild local welt Verified 08/05/21 09:40 (unknown) (no (unknown) (unknown) aerosol inhaler (units (unknown) date) (Proventil HFA) unknown) shortness of breath or wheezing (unknown) (no (unknown) (unknown) albuterol sulfate (units (unknown) date) 90 mcg/actuation 2 unknown) puff inhalation Q4-6H PRN 12/23/20 08/05/21 (unknown) (no (unknown) (unknown) back to [place], (units (unknown) date) [place] for follow-up. unknown) She said she was having difficulty because of (unknown) (no (unknown) (unknown) better. However (units (unknown) date) after she ran out unknown) of Provera at the end of 2020, she did not go (unknown) (no (unknown) (unknown) cholecalciferol (units (unknown) date) (vitamin D3) 25 unknown) 5,000 unit PO DAILY 11/21/20 08/05/21 History (unknown) (no (unknown) (unknown) consideration of (units (unknown) date) intravenous iron unknown) infusion for her severe iron deficiency anemia (unknown) (no (unknown) (unknown) cycles are very (units (unknown) date) regular. unknown) (unknown) (no (unknown) (unknown) d-mannose 500 mg (units (unknown) date) capsule mg PO unknown) 11/21/20 08/05/21 History (unknown) (no (unknown) (unknown) deficiency still (units (unknown) date) could be 1 of the unknown) reasons. I am recommending another round of (unknown) (no (unknown) (unknown) fine. She denies (units (unknown) date) shortness of unknown) breath. She denies abdominal pain, but gets (unknown) (no (unknown) (unknown) first. (units (unkno wn) date) unknown) (unknown) (no (unknown) (unknown) fluoxetine 10 mg (units (unknown) date) capsule (Prozac) unknown) 10 mg PO DAILY #90 caps 07/15/21 08/05/21 Rx (unknown) (no (unknown) (unknown) fluoxetine 20 mg (units (unknown) date) capsule (Prozac) unknown) 20 mg PO DAILY #90 caps 07/15/21 08/05/21 Rx (unknown) (no (unknown) (unknown) her job. (units (unkno wn) date) Thereafter, she unknown) once again is having heavy periods, and remarkably her (unknown) (no (unknown) (unknown) hyperlipidemia, (units (unknown) date) migraine, asthma, unknown) and vitamin-D deficiency. She was referred to (unknown) (no (unknown) (unknown) hypertension, and (units (unknown) date) possible sleep unknown) apnea. She was referred to our clinic for (unknown) (no (unknown) (unknown) instructed for (units (unknown) date) about 3 months. unknown) The heavy menstrual bleeding improved and were (unknown) (no (unknown) (unknown) iron infusions. (units (unknown) date) The goal is to unknown) keep the saturation above 20% and or ferritin (unknown) (no (unknown) (unknown) laboratory tests (units (unknown) date) including CBC and unknown) iron panels showed significant improvement. (unknown) (no (unknown) (unknown) level above 100. (units (unknown) date) Patient voiced unknown) understanding and agreement. (unknown) (no (unknown) (unknown) losartan 100 1 (units (unknown) date) tab PO DAILY #90 unknown) tabs 07/15/21 08/05/21 Rx (unknown) (no (unknown) (unknown) lunch time. (units (un known) date) Clinically, she unknown) said she is tired all the time. Her appetite is (unknown) (no (unknown) (unknown) mcg (1,000 unit) (units (unknown) date) capsule unknown) (unknown) (no (unknown) (unknown) metoprolol (units (unk nown) date) succinate 25 mg 50 unknown) mg PO DAILY #90 tabs 06/23/21 08/05/21 Rx (unknown) (no (unknown) (unknown) mg-hydrochlorothi (units (unknown) date) azide 25 mg tablet unknown) (unknown) (no (unknown) (unknown) morbid obesity, (units (unknown) date) intramural uterine unknown) fibroid and heavy menstrual periods. Dr Street (unknown) (no (unknown) (unknown) multivitamin (units (u nknown) date) (Multiple Vitamins unknown) 1 tab PO QDAY ##0 06/15/16 08/05/21 History (unknown) (no (unknown) (unknown) nauseous a lot. (units (unknown) date) No blood in the unknown) stool. (unknown) (no (unknown) (unknown) our clinic for (units (unknown) date) evaluation of iron unknown) deficiency anemia. She also has history of (unknown) (no (unknown) (unknown) reasons including (units (unknown) date) liver function, unknown) medications, steroid use, etc.. I am (unknown) (no (unknown) (unknown) recommended (units (un known) date) Provera daily 10 unknown) days out of each month. Patient tried Provera as (unknown) (no (unknown) (unknown) recommending that (units (unknown) date) we continue to unknown) monitor at this point I will check PT PTT (unknown) (no (unknown) (unknown) rizatriptan 10 mg (units (unknown) date) tablet 10 mg PO unknown) .prn headache #30 tabs 05/29/21 08/05/21 Rx (unknown) (no (unknown) (unknown) stomach, she (units (u nknown) date) feels sick. She unknown) has noticed nauseated after taking iron pill at (unknown) (no (unknown) (unknown) tablet) (units (unkno wn) date) unknown) (unknown) (no (unknown) (unknown) tablet,extended (units (unknown) date) release 24 hr unknown) (unknown) (no (unknown) (unknown) talked with her (units (unknown) date) that the fatigue unknown) could be due to other factors, but iron (unknown) (no (unknown) (unknown) today for (units (unkn own) date) scheduled unknown) follow-up visit. Explained to the patient that the (unknown) (no (unknown) (unknown) verapamil 40 mg (units (unknown) date) tablet 40 mg PO unknown) TID #270 tabs 05/29/21 08/05/21 Rx Result panel 9 (unknown) (no (unknown) (unknown) (no value) (units (unk nown) date) unknown) (unknown) (no (unknown) (unknown) Date of Service: (units (unknown) date) 10/30/21 unknown) (unknown) (no (unknown) (unknown) (no value) (units (unk nown) date) unknown) (unknown) (no (unknown) (unknown) Allergies (units (unkn own) date) unknown) (unknown) (no (unknown) (unknown) Home Medications (units (unknown) date) unknown) (unknown) (no (unknown) (unknown) [facility] (units (unknown) date) [address]) [place] [address] (unknown) (no (unknown) (unknown) Laboratory Last (units (unknown) date) Values unknown) (unknown) (no (unknown) (unknown) Oncology Progress (units (unknown) date) Note unknown) (unknown) (no (unknown) (unknown) (no value) (units (unk nown) date) unknown) (unknown) (no (unknown) (unknown) #8.5 grams (units (unk nown) date) unknown) (unknown) (no (unknown) (unknown) Medication (units (unk nown) date) Instructions unknown) Recorded Confirmed Type (unknown) (no (unknown) (unknown) as a result of (units (unknown) date) uterine fibroid unknown) with heavy menstrual periods. (unknown) (no (unknown) (unknown) % Saturation 18 % (units (unknown) date) (15-50) 10/24/21 unknown) 16:41 (unknown) (no (unknown) (unknown) (1) Iron (units (unkno wn) date) deficiency anemia unknown) (unknown) (no (unknown) (unknown) (2) Bruises (units (un known) date) easily unknown) (unknown) (no (unknown) (unknown) - Date of Visit (units (unknown) date) unknown) (unknown) (no (unknown) (unknown) - Labs (units (unkno wn) date) unknown) (unknown) (no (unknown) (unknown) - Patient (units (unkn own) date) Self-Reported unknown) Symptoms (unknown) (no (unknown) (unknown) [id number] (units (unkn own) date) unknown) (unknown) (no (unknown) (unknown) 01/01/2021. Since (units (unknown) date) patient had not unknown) tried endocrine therapy. Dr. Barrera (unknown) (no (unknown) (unknown) 09/24/2021. She (units (unknown) date) tolerated the unknown) infusion well. However, she said that she has not (unknown) (no (unknown) (unknown) ALT 19 IU/L (<35) (units (unknown) date) 10/24/21 16:41 unknown) (unknown) (no (unknown) (unknown) ANTIBIOTICS)] (units ( unknown) date) unknown) (unknown) (no (unknown) (unknown) AST 20 IU/L (units (un known) date) (14-36) 10/24/21 unknown) 16:41 (unknown) (no (unknown) (unknown) Age/Sex: 46 / F (units (unknown) date) unknown) (unknown) (no (unknown) (unknown) Albumin 4.7 g/dL (units (unknown) date) (3.5-5.0) 10/24/21 unknown) 16:41 (unknown) (no (unknown) (unknown) Albumin/Globulin (units (unknown) date) Ratio 1.6 unknown) (1.0-2.8) 10/24/21 16:41 (unknown) (no (unknown) (unknown) Alkaline (units (unkno wn) date) Phosphatase 51 U/L unknown) (38-126) 10/24/21 16:41 (unknown) (no (unknown) (unknown) Allergy/AdvReac (units (unknown) date) Type Severity unknown) Reaction Status Date / Time (unknown) (no (unknown) (unknown) Antibiotics) (units (u nknown) date) unknown) (unknown) (no (unknown) (unknown) Assessment and (units (unknown) date) Plan unknown) (unknown) (no (unknown) (unknown) BUN 10 mg/dL (units (u nknown) date) (7-17) 10/24/21 unknown) 16:41 (unknown) (no (unknown) (unknown) BUN/Creatinine (units (unknown) date) Ratio 12.0 (6-22) unknown) 10/24/21 16:41 (unknown) (no (unknown) (unknown) Baso # (Auto) 0 (units (unknown) date) /uL (0-100) unknown) 10/24/21 16:41 (unknown) (no (unknown) (unknown) Baso % (Auto) 0.6 (units (unknown) date) % (0-2) 10/24/21 unknown) 16:41 (unknown) (no (unknown) (unknown) Calcium 9.4 mg/dL (units (unknown) date) (8.4-10.2) unknown) 10/24/21 16:41 (unknown) (no (unknown) (unknown) Carbon Dioxide 29 (units (unknown) date) mmol/L (22-32) unknown) 10/24/21 16:41 (unknown) (no (unknown) (unknown) Chief Complaint: (units (unknown) date) Stephanie is a 46 year unknown) old female with iron deficiency anemia (unknown) (no (unknown) (unknown) Chloride 100 (units (u nknown) date) mmol/L (98-107) unknown) 10/24/21 16:41 (unknown) (no (unknown) (unknown) Creatinine 0.83 (units (unknown) date) mg/dL (0.52-1.04) unknown) 10/24/21 16:41 (unknown) (no (unknown) (unknown) : 1975 (units (unknown) date) Acct:[id number] unknown) (unknown) (no (unknown) (unknown) Date of visit: (units (unknown) date) 10/30/21 unknown) (unknown) (no (unknown) (unknown) Discussion: (units (un known) date) unknown) (unknown) (no (unknown) (unknown) Eos # (Auto) 200 (units (unknown) date) /uL (0-450) unknown) 10/24/21 16:41 (unknown) (no (unknown) (unknown) Eos % (Auto) 2.1 (units (unknown) date) % (2-4) 10/24/21 unknown) 16:41 (unknown) (no (unknown) (unknown) Estimated GFR > (units (unknown) date) 60 mL/min (>60) unknown) 10/24/21 16:41 (unknown) (no (unknown) (unknown) Extreme swelling, (units (unknown) date) Dizzy/lightheaded unknown) (unknown) (no (unknown) (unknown) [place] (units (unknown) date) evaluated the unknown) patient in 07/2020 and referred Stephanie to [facility] (unknown) (no (unknown) (unknown) Ferritin 55 ng/mL (units (unknown) date) (6-137) 10/24/21 unknown) 16:41 (unknown) (no (unknown) (unknown) GenericComposite[ (units (unknown) date) Plt Count 343 unknown) X10^3/uL (150-400) 10/24/21 16:41 ] (unknown) (no (unknown) (unknown) GenericComposite[ (units (unknown) date) RBC 4.53 X10^6/uL unknown) (4.0-5.2) 10/24/21 16:41 ] (unknown) (no (unknown) (unknown) GenericComposite[ (units (unknown) date) WBC 8.5 X10^3/uL unknown) (4.5-11.0) 10/24/21 16:41 ] (unknown) (no (unknown) (unknown) Globulin 3.0 g/dL (units (unknown) date) (1.7-4.1) 10/24/21 unknown) 16:41 (unknown) (no (unknown) (unknown) Glucose 111 mg/dL (units (unknown) date) (70-100) H unknown) 10/24/21 16:41 (unknown) (no (unknown) (unknown) Gynecology as (units ( unknown) date) patient desired unknown) surgical management. (unknown) (no (unknown) (unknown) Hct 37.6 % (units (unk nown) date) (36-46) 10/24/21 unknown) 16:41 (unknown) (no (unknown) (unknown) Hgb 12.8 g/dL (units ( unknown) date) (12.0-16.0) unknown) 10/24/21 16:41 (unknown) (no (unknown) (unknown) History of (units (unk n) date) Present Illnes: unknown) (unknown) (no (unknown) (unknown) Home Medications (units (unknown) date) and Allergies unknown) (unknown) (no (unknown) (unknown) However patient (units (unknown) date) still has a low unknown) iron saturation and low ferritin level. I (unknown) (no (unknown) (unknown) I explained to (units (unknown) date) the patient and unknown) bruises can be caused by several different (unknown) (no (unknown) (unknown) Interval history: (units (unknown) date) unknown) (unknown) (no (unknown) (unknown) Iron 57 ug/dL (units ( unknown) date) (37-170) 10/24/21 unknown) 16:41 (unknown) (no (unknown) (unknown) Lymph # (Auto) (units (unknown) date) 1300 /uL unknown) ([id number]) 10/24/21 16:41 (unknown) (no (unknown) (unknown) Lymph % (Auto) (units (unknown) date) 15.0 % (25-40) L unknown) 10/24/21 16:41 (unknown) (no (unknown) (unknown) MCH 28.2 PG (units (un known) date) (26-34) 10/24/21 unknown) 16:41 (unknown) (no (unknown) (unknown) MCHC 34.0 % (units (un known) date) (30-36) 10/24/21 unknown) 16:41 (unknown) (no (unknown) (unknown) MCV 82.9 fL (units (un known) date) (80-100) 10/24/21 unknown) 16:41 (unknown) (no (unknown) (unknown) Sharkey # (Auto) 400 (units (unknown) date) /uL (0-900) unknown) 10/24/21 16:41 (unknown) (no (unknown) (unknown) Sharkey % (Auto) 4.7 (units (unknown) date) % (3-14) 10/24/21 unknown) 16:41 (unknown) (no (unknown) (unknown) Neut # (Auto) (units ( unknown) date) 6600 /uL unknown) ([id number]) 10/24/21 16:41 (unknown) (no (unknown) (unknown) Neut % (Auto) (units ( unknown) date) 77.6 % (50-75) H unknown) 10/24/21 16:41 (unknown) (no (unknown) (unknown) PN -Subjective (units (unknown) date) unknown) (unknown) (no (unknown) (unknown) Patient completed (units (unknown) date) 5 weekly infusions unknown) of Venofer in September. Patient presents here (unknown) (no (unknown) (unknown) Patient: (units (unkno wn) date) Stephanie Rae unknown) MR#: M (unknown) (no (unknown) (unknown) Plan: (units (unkno wn) date) unknown) (unknown) (no (unknown) (unknown) Potassium 3.5 (units ( unknown) date) mmol/L (3.4-5.1) unknown) 10/24/21 16:41 (unknown) (no (unknown) (unknown) Provider: (units (unkn own) date) Duke Decker MD unknown) (unknown) (no (unknown) (unknown) RDW 17.3 % (units (unk nown) date) (11.6-14.8) H unknown) 10/24/21 16:41 (unknown) (no (unknown) (unknown) RTC in 3 months, (units (unknown) date) CBC, CMP, iron unknown) profile, ferritin (unknown) (no (unknown) (unknown) Results (units (unkno wn) date) unknown) (unknown) (no (unknown) (unknown) Rx (units (unkno wn) date) unknown) (unknown) (no (unknown) (unknown) SR Cardiovascular (units (unknown) date) issues: unknown) Palpitations, Chest pain, discomfort, tightness, (unknown) (no (unknown) (unknown) SR Constitution: (units (unknown) date) Fatigue/Malaise unknown) (unknown) (no (unknown) (unknown) SR (units (unkno wn) date) Musculoskeletal unknown) issues: Muscle pain or cramps, Back or neck pain (unknown) (no (unknown) (unknown) SR Neuro issues: (units (unknown) date) Headache, unknown) Lightheaded/dizzy, Numbness or tingling (unknown) (no (unknown) (unknown) SR ears, nose, (units (unknown) date) mouth, throat unknown) issues: Ears ringing, Congestion, Cough (unknown) (no (unknown) (unknown) Tatyana is a (units (unkn own) date) 46-year-old female unknown) with obesity, heavy menstrual periods, asthma, (unknown) (no (unknown) (unknown) Stephanie Rae (units (unknown) date) is a 46 year old unknown) female with history of hypertension, (unknown) (no (unknown) (unknown) Stephanie underwent (units (unknown) date) weekly Venofer unknown) infusion 200 mg iv x 5 from 08/27/2021 to (unknown) (no (unknown) (unknown) She has been (units (un known) date) taking oral iron unknown) 1# daily for years. It is not working per patient. (unknown) (no (unknown) (unknown) She has noticed (units (unknown) date) that she usually unknown) takes iron pills with food; if taking empty (unknown) (no (unknown) (unknown) She was evaluated (units (unknown) date) by pot puller unknown) Dr. Jf Barrera at [place], [place] on (unknown) (no (unknown) (unknown) Signed By: (units (unk nown) date) unknown) (unknown) (no (unknown) (unknown) Sodium 137 mmol/L (units (unknown) date) (137-145) 10/24/21 unknown) 16:41 (unknown) (no (unknown) (unknown) Sulfa (units (unkno wn) date) (Sulfonamide unknown) Allergy Intermediate SOB Verified 08/05/21 09:40 (unknown) (no (unknown) (unknown) TIBC 311 ug/dL (units (unknown) date) (265-497) 10/24/21 unknown) 16:41 (unknown) (no (unknown) (unknown) Total Bilirubin (units (unknown) date) 0.4 mg/dL unknown) (0.2-1.3) 10/24/21 16:41 (unknown) (no (unknown) (unknown) Total Protein 7.7 (units (unknown) date) g/dL (6.3-8.2) unknown) 10/24/21 16:41 (unknown) (no (unknown) (unknown) Transferrin 254 (units (unknown) date) mg/dL (206-381) unknown) 10/24/21 16:41 (unknown) (no (unknown) (unknown) Venofer 200 mg iv (units (unknown) date) weekly x 5, unknown) starting next (unknown) (no (unknown) (unknown) [SULFA (units (unkno wn) date) (SULFONAMIDE unknown) (unknown) (no (unknown) (unknown) adhesive (units (unkno wn) date) [ADHESIVE] AdvReac unknown) Mild local welt Verified 08/05/21 09:40 (unknown) (no (unknown) (unknown) aerosol inhaler (units (unknown) date) (Proventil HFA) unknown) shortness of breath or wheezing (unknown) (no (unknown) (unknown) albuterol sulfate (units (unknown) date) 90 mcg/actuation 2 unknown) puff inhalation Q4-6H PRN 12/23/20 08/05/21 (unknown) (no (unknown) (unknown) back to [place] (units (unknown) date) [place] for follow-up. unknown) She said she was having difficulty because of (unknown) (no (unknown) (unknown) better. However (units (unknown) date) after she ran out unknown) of Provera at the end of 2020, she did not go (unknown) (no (unknown) (unknown) cholecalciferol (units (unknown) date) (vitamin D3) 25 unknown) 5,000 unit PO DAILY 11/21/20 08/05/21 History (unknown) (no (unknown) (unknown) consideration of (units (unknown) date) intravenous iron unknown) infusion for her severe iron deficiency anemia (unknown) (no (unknown) (unknown) d-mannose 500 mg (units (unknown) date) capsule mg PO unknown) 11/21/20 08/05/21 History (unknown) (no (unknown) (unknown) deficiency still (units (unknown) date) could be 1 of the unknown) reasons. I am recommending another round of (unknown) (no (unknown) (unknown) fine. She denies (units (unknown) date) shortness of unknown) breath. She denies abdominal pain, but gets (unknown) (no (unknown) (unknown) first. (units (unkno wn) date) unknown) (unknown) (no (unknown) (unknown) fluoxetine 10 mg (units (unknown) date) capsule (Prozac) unknown) 10 mg PO DAILY #90 caps 07/15/21 08/05/21 Rx (unknown) (no (unknown) (unknown) fluoxetine 20 mg (units (unknown) date) capsule (Prozac) unknown) 20 mg PO DAILY #90 caps 07/15/21 08/05/21 Rx (unknown) (no (unknown) (unknown) have not (units (unkno wn) date) improved. unknown) (unknown) (no (unknown) (unknown) her job. (units (unkno wn) date) Thereafter, she unknown) once again has been having heavy periods, and (unknown) (no (unknown) (unknown) hyperlipidemia, (units (unknown) date) migraine, asthma, unknown) and vitamin-D deficiency. She was referred to (unknown) (no (unknown) (unknown) hypertension, and (units (unknown) date) possible sleep unknown) apnea. She was referred to our clinic for (unknown) (no (unknown) (unknown) instructed for (units (unknown) date) about 3 months. unknown) The heavy menstrual bleeding improved and were (unknown) (no (unknown) (unknown) iron infusions. (units (unknown) date) The goal is to unknown) keep the saturation above 20% and or ferritin (unknown) (no (unknown) (unknown) laboratory tests (units (unknown) date) including CBC and unknown) iron panels showed significant improvement. (unknown) (no (unknown) (unknown) level above 100. (units (unknown) date) Patient voiced unknown) understanding and agreement. (unknown) (no (unknown) (unknown) losartan 100 1 (units (unknown) date) tab PO DAILY #90 unknown) tabs 07/15/21 08/05/21 Rx (unknown) (no (unknown) (unknown) lunch time. (units (un known) date) Clinically, she unknown) said she is tired all the time. Her appetite is (unknown) (no (unknown) (unknown) mcg (1,000 unit) (units (unknown) date) capsule unknown) (unknown) (no (unknown) (unknown) metoprolol (units (unk nown) date) succinate 25 mg 50 unknown) mg PO DAILY #90 tabs 22 08/05/21 Rx (unknown) (no (unknown) (unknown) mg-hydrochlorothi (units (unknown) date) azide 25 mg tablet unknown) (unknown) (no (unknown) (unknown) morbid obesity, (units (unknown) date) intramural uterine unknown) fibroid and heavy menstrual periods. Dr Street (unknown) (no (unknown) (unknown) multivitamin (units (u nknown) date) (Multiple Vitamins unknown) 1 tab PO QDAY ##0 06/15/16 08/05/21 History (unknown) (no (unknown) (unknown) nauseous a lot. (units (unknown) date) No blood in the unknown) stool. (unknown) (no (unknown) (unknown) noticed any (units (un known) date) improvement as far unknown) as her symptoms are concerned. For example, she (unknown) (no (unknown) (unknown) our clinic for (units (unknown) date) evaluation of iron unknown) deficiency anemia. She also has history of (unknown) (no (unknown) (unknown) reasons including (units (unknown) date) liver function, unknown) medications, steroid use, etc.. I am (unknown) (no (unknown) (unknown) recommended (units (un known) date) Provera daily 10 unknown) days out of each month. Patient tried Provera as (unknown) (no (unknown) (unknown) recommending that (units (unknown) date) we continue to unknown) monitor at this point I will check PT PTT (unknown) (no (unknown) (unknown) remarkably her (units (unknown) date) cycles are very unknown) regular. (unknown) (no (unknown) (unknown) rizatriptan 10 mg (units (unknown) date) tablet 10 mg PO unknown) .prn headache #30 tabs 05/29/21 08/05/21 Rx (unknown) (no (unknown) (unknown) still feels (units (un known) date) tired. She unknown) admitted that her menstrual bleeding remains heavy and (unknown) (no (unknown) (unknown) stomach, she (units (u nknown) date) feels sick. She unknown) has noticed nauseated after taking iron pill at (unknown) (no (unknown) (unknown) tablet) (units (unkno wn) date) unknown) (unknown) (no (unknown) (unknown) tablet,extended (units (unknown) date) release 24 hr unknown) (unknown) (no (unknown) (unknown) talked with her (units (unknown) date) that the fatigue unknown) could be due to other factors, but iron (unknown) (no (unknown) (unknown) today for (units (unkn own) date) scheduled unknown) follow-up visit. Explained to the patient that the (unknown) (no (unknown) (unknown) verapamil 40 mg (units (unknown) date) tablet 40 mg PO unknown) TID #270 tabs 05/29/21 08/05/21 Rx Result panel 10 (unknown) (no (unknown) (unknown) (no value) (units (unk nown) date) unknown) (unknown) (no (unknown) (unknown) Date of Service: (units (unknown) date) 10/30/21 unknown) (unknown) (no (unknown) (unknown) (no value) (units (unk nown) date) unknown) (unknown) (no (unknown) (unknown) Allergies (units (unkn own) date) unknown) (unknown) (no (unknown) (unknown) Home Medications (units (unknown) date) unknown) (unknown) (no (unknown) (unknown) [facility] (units (unknown) date) [address] unknown) [place] [address] (unknown) (no (unknown) (unknown) Laboratory Last (units (unknown) date) Values unknown) (unknown) (no (unknown) (unknown) Oncology Progress (units (unknown) date) Note unknown) (unknown) (no (unknown) (unknown) (no value) (units (unk nown) date) unknown) (unknown) (no (unknown) (unknown) #8.5 grams (units (unk nown) date) unknown) (unknown) (no (unknown) (unknown) Medication (units (unk nown) date) Instructions unknown) Recorded Confirmed Type (unknown) (no (unknown) (unknown) as a result of (units (unknown) date) uterine fibroid unknown) with heavy menstrual periods. She underwent (unknown) (no (unknown) (unknown) here today for (units (unknown) date) scheduled unknown) follow-up visit. I explained to the patient that the (unknown) (no (unknown) (unknown) infusions. The (units (unknown) date) goal is to keep unknown) the saturation above 20% and or ferritin level (unknown) (no (unknown) (unknown) % Saturation 18 % (units (unknown) date) (15-50) 10/24/21 unknown) 16:41 (unknown) (no (unknown) (unknown) (1) Iron (units (unkno wn) date) deficiency anemia unknown) (unknown) (no (unknown) (unknown) (2) Bruises (units (un known) date) easily unknown) (unknown) (no (unknown) (unknown) - Date of Visit (units (unknown) date) unknown) (unknown) (no (unknown) (unknown) - Labs (units (unkno wn) date) unknown) (unknown) (no (unknown) (unknown) - Patient (units (unkn own) date) Self-Reported unknown) Symptoms (unknown) (no (unknown) (unknown) - ROS (units (unkno wn) date) unknown) (unknown) (no (unknown) (unknown) [id number] (units (unkn own) date) unknown) (unknown) (no (unknown) (unknown) 01/01/2021. Since (units (unknown) date) patient had not unknown) tried endocrine therapy. Dr. Barrera (unknown) (no (unknown) (unknown) 09/24/2021. She (units (unknown) date) tolerated the unknown) infusion well. However, she said that she has not (unknown) (no (unknown) (unknown) ALT 19 IU/L (<35) (units (unknown) date) 10/24/21 16:41 unknown) (unknown) (no (unknown) (unknown) ANTIBIOTICS)] (units ( unknown) date) unknown) (unknown) (no (unknown) (unknown) AST 20 IU/L (units (un known) date) (14-36) 10/24/21 unknown) 16:41 (unknown) (no (unknown) (unknown) Age/Sex: 46 / F (units (unknown) date) unknown) (unknown) (no (unknown) (unknown) Albumin 4.7 g/dL (units (unknown) date) (3.5-5.0) 10/24/21 unknown) 16:41 (unknown) (no (unknown) (unknown) Albumin/Globulin (units (unknown) date) Ratio 1.6 unknown) (1.0-2.8) 10/24/21 16:41 (unknown) (no (unknown) (unknown) Alkaline (units (unkno wn) date) Phosphatase 51 U/L unknown) (38-126) 10/24/21 16:41 (unknown) (no (unknown) (unknown) All Systems: (units (u nknown) date) reviewed and no unknown) additional remarkable complaints except as stated (unknown) (no (unknown) (unknown) Allergy/AdvReac (units (unknown) date) Type Severity unknown) Reaction Status Date / Time (unknown) (no (unknown) (unknown) Antibiotics) (units (u nknown) date) unknown) (unknown) (no (unknown) (unknown) Assessment and (units (unknown) date) Plan unknown) (unknown) (no (unknown) (unknown) BUN 10 mg/dL (units (u nknown) date) (7-17) 10/24/21 unknown) 16:41 (unknown) (no (unknown) (unknown) BUN/Creatinine (units (unknown) date) Ratio 12.0 (6-22) unknown) 10/24/21 16:41 (unknown) (no (unknown) (unknown) Baso # (Auto) 0 (units (unknown) date) /uL (0-100) unknown) 10/24/21 16:41 (unknown) (no (unknown) (unknown) Baso % (Auto) 0.6 (units (unknown) date) % (0-2) 10/24/21 unknown) 16:41 (unknown) (no (unknown) (unknown) Calcium 9.4 mg/dL (units (unknown) date) (8.4-10.2) unknown) 10/24/21 16:41 (unknown) (no (unknown) (unknown) Carbon Dioxide 29 (units (unknown) date) mmol/L (22-32) unknown) 10/24/21 16:41 (unknown) (no (unknown) (unknown) Chief Complaint: (units (unknown) date) Stephanie is a 46 year unknown) old female with iron deficiency anemia (unknown) (no (unknown) (unknown) Chloride 100 (units (u nknown) date) mmol/L (98-107) unknown) 10/24/21 16:41 (unknown) (no (unknown) (unknown) Comfortable, NAD, (units (unknown) date) pleasant and unknown) cooperative. (unknown) (no (unknown) (unknown) Creatinine 0.83 (units (unknown) date) mg/dL (0.52-1.04) unknown) 10/24/21 16:41 (unknown) (no (unknown) (unknown) : 1975 (units (unknown) date) Acct:[id number] unknown) (unknown) (no (unknown) (unknown) Date of visit: (units (unknown) date) 10/30/21 unknown) (unknown) (no (unknown) (unknown) Discussion: (units (un known) date) unknown) (unknown) (no (unknown) (unknown) ECOG 0 (units (unkno wn) date) unknown) (unknown) (no (unknown) (unknown) Eos # (Auto) 200 (units (unknown) date) /uL (0-450) unknown) 10/24/21 16:41 (unknown) (no (unknown) (unknown) Eos % (Auto) 2.1 (units (unknown) date) % (2-4) 10/24/21 unknown) 16:41 (unknown) (no (unknown) (unknown) Estimated GFR > (units (unknown) date) 60 mL/min (>60) unknown) 10/24/21 16:41 (unknown) (no (unknown) (unknown) Exam (units (unkno wn) date) unknown) (unknown) (no (unknown) (unknown) Extreme swelling, (units (unknown) date) Dizzy/lightheaded unknown) (unknown) (no (unknown) (unknown) [place] (units (unknown) date) evaluated the unknown) patient in 07/2020 and referred Stephanie to [facility] (unknown) (no (unknown) (unknown) Ferritin 55 ng/mL (units (unknown) date) (6-137) 10/24/21 unknown) 16:41 (unknown) (no (unknown) (unknown) GenericComposite[ (units (unknown) date) Plt Count 343 unknown) X10^3/uL (150-400) 10/24/21 16:41 ] (unknown) (no (unknown) (unknown) GenericComposite[ (units (unknown) date) RBC 4.53 X10^6/uL unknown) (4.0-5.2) 10/24/21 16:41 ] (unknown) (no (unknown) (unknown) GenericComposite[ (units (unknown) date) WBC 8.5 X10^3/uL unknown) (4.5-11.0) 10/24/21 16:41 ] (unknown) (no (unknown) (unknown) Globulin 3.0 g/dL (units (unknown) date) (1.7-4.1) 10/24/21 unknown) 16:41 (unknown) (no (unknown) (unknown) Glucose 111 mg/dL (units (unknown) date) (70-100) H unknown) 10/24/21 16:41 (unknown) (no (unknown) (unknown) Gynecology as (units ( unknown) date) patient desired unknown) surgical management. (unknown) (no (unknown) (unknown) Hct 37.6 % (units (unk nown) date) (36-46) 10/24/21 unknown) 16:41 (unknown) (no (unknown) (unknown) Hgb 12.8 g/dL (units ( unknown) date) (12.0-16.0) unknown) 10/24/21 16:41 (unknown) (no (unknown) (unknown) History of (units (unk nown) date) Present Illnes: unknown) (unknown) (no (unknown) (unknown) Home Medications (units (unknown) date) and Allergies unknown) (unknown) (no (unknown) (unknown) However patient (units (unknown) date) still has a low unknown) iron saturation and low ferritin level. I (unknown) (no (unknown) (unknown) I explained to (units (unknown) date) the patient and unknown) bruises can be caused by several different (unknown) (no (unknown) (unknown) Interval history: (units (unknown) date) unknown) (unknown) (no (unknown) (unknown) Iron 57 ug/dL (units ( unknown) date) (37-170) 10/24/21 unknown) 16:41 (unknown) (no (unknown) (unknown) Lymph # (Auto) (units (unknown) date) 1300 /uL unknown) (5619-3815) 10/24/21 16:41 (unknown) (no (unknown) (unknown) Lymph % (Auto) (units (unknown) date) 15.0 % (25-40) L unknown) 10/24/21 16:41 (unknown) (no (unknown) (unknown) MCH 28.2 PG (units (un known) date) (26-34) 10/24/21 unknown) 16:41 (unknown) (no (unknown) (unknown) MCHC 34.0 % (units (un known) date) (30-36) 10/24/21 unknown) 16:41 (unknown) (no (unknown) (unknown) MCV 82.9 fL (units (un known) date) (80-100) 10/24/21 unknown) 16:41 (unknown) (no (unknown) (unknown) Sharkey # (Auto) 400 (units (unknown) date) /uL (0-900) unknown) 10/24/21 16:41 (unknown) (no (unknown) (unknown) Sharkey % (Auto) 4.7 (units (unknown) date) % (3-14) 10/24/21 unknown) 16:41 (unknown) (no (unknown) (unknown) Narrative: (units (unk nown) date) unknown) (unknown) (no (unknown) (unknown) Neut # (Auto) (units ( unknown) date) 6600 /uL unknown) ([id number]) 10/24/21 16:41 (unknown) (no (unknown) (unknown) Neut % (Auto) (units ( unknown) date) 77.6 % (50-75) H unknown) 10/24/21 16:41 (unknown) (no (unknown) (unknown) PN -Subjective (units (unknown) date) unknown) (unknown) (no (unknown) (unknown) Patient completed (units (unknown) date) 5 weekly infusions unknown) of Venofer in September,. Patient presents (unknown) (no (unknown) (unknown) Patient: (units (unkno wn) date) Stephanie Rae unknown) MR#: M (unknown) (no (unknown) (unknown) Plan: (units (unkno wn) date) unknown) (unknown) (no (unknown) (unknown) Potassium 3.5 (units ( unknown) date) mmol/L (3.4-5.1) unknown) 10/24/21 16:41 (unknown) (no (unknown) (unknown) Provider: (units (unkn own) date) Duke Decker MD unknown) (unknown) (no (unknown) (unknown) RDW 17.3 % (units (unk nown) date) (11.6-14.8) H unknown) 10/24/21 16:41 (unknown) (no (unknown) (unknown) RTC in 3 months, (units (unknown) date) CBC, CMP, iron unknown) profile, ferritin (unknown) (no (unknown) (unknown) Results (units (unkno wn) date) unknown) (unknown) (no (unknown) (unknown) Rx (units (unkno wn) date) unknown) (unknown) (no (unknown) (unknown) SR Cardiovascular (units (unknown) date) issues: unknown) Palpitations, Chest pain, discomfort, tightness, (unknown) (no (unknown) (unknown) SR Constitution: (units (unknown) date) Fatigue/Malaise unknown) (unknown) (no (unknown) (unknown) SR (units (unkno wn) date) Musculoskeletal unknown) issues: Muscle pain or cramps, Back or neck pain (unknown) (no (unknown) (unknown) SR Neuro issues: (units (unknown) date) Headache, unknown) Lightheaded/dizzy, Numbness or tingling (unknown) (no (unknown) (unknown) SR ears, nose, (units (unknown) date) mouth, throat unknown) issues: Ears ringing, Congestion, Cough (unknown) (no (unknown) (unknown) Tatyana is a (units (unkn own) date) 46-year-old female unknown) with obesity, heavy menstrual periods, asthma, (unknown) (no (unknown) (unknown) Stephanie Rae (units (unknown) date) is a 46 year old unknown) female with history of hypertension, (unknown) (no (unknown) (unknown) Stephanie underwent (units (unknown) date) weekly Venofer unknown) infusion 200 mg iv x 5 from 08/27/2021 to (unknown) (no (unknown) (unknown) She has been (units (un known) date) taking oral iron unknown) 1# daily for years. It is not working per patient. (unknown) (no (unknown) (unknown) She has noticed (units (unknown) date) that she usually unknown) takes iron pills with food; if taking empty (unknown) (no (unknown) (unknown) She was evaluated (units (unknown) date) by pot puller unknown) Dr. Jf Barrera at [place], [place] on (unknown) (no (unknown) (unknown) Signed (units (unkno wn) date) By:<Electronically unknown) signed by Duke Decker MD>10/30/21 [id number] (unknown) (no (unknown) (unknown) Sodium 137 mmol/L (units (unknown) date) (137-145) 10/24/21 unknown) 16:41 (unknown) (no (unknown) (unknown) Sulfa (units (unkno wn) date) (Sulfonamide unknown) Allergy Intermediate SOB Verified 08/05/21 09:40 (unknown) (no (unknown) (unknown) TIBC 311 ug/dL (units (unknown) date) (265-497) 10/24/21 unknown) 16:41 (unknown) (no (unknown) (unknown) Total Bilirubin (units (unknown) date) 0.4 mg/dL unknown) (0.2-1.3) 10/24/21 16:41 (unknown) (no (unknown) (unknown) Total Protein 7.7 (units (unknown) date) g/dL (6.3-8.2) unknown) 10/24/21 16:41 (unknown) (no (unknown) (unknown) Transferrin 254 (units (unknown) date) mg/dL (206-381) unknown) 10/24/21 16:41 (unknown) (no (unknown) (unknown) Venofer 200 mg iv (units (unknown) date) weekly x 5, unknown) starting next (unknown) (no (unknown) (unknown) Venofer infusion (units (unknown) date) 200 mg iv x 5 from unknown) 08/27/2021 to 09/24/2021 (unknown) (no (unknown) (unknown) [SULFA (units (unkno wn) date) (SULFONAMIDE unknown) (unknown) (no (unknown) (unknown) above 100. (units (unk nown) date) Patient voiced unknown) understanding and agreement. (unknown) (no (unknown) (unknown) adhesive (units (unkno wn) date) [ADHESIVE] AdvReac unknown) Mild local welt Verified 08/05/21 09:40 (unknown) (no (unknown) (unknown) aerosol inhaler (units (unknown) date) (Proventil HFA) unknown) shortness of breath or wheezing (unknown) (no (unknown) (unknown) albuterol sulfate (units (unknown) date) 90 mcg/actuation 2 unknown) puff inhalation Q4-6H PRN 12/23/20 08/05/21 (unknown) (no (unknown) (unknown) back to [place], (units (unknown) date) [place] for follow-up. unknown) She said she was having difficulty because of (unknown) (no (unknown) (unknown) better. However (units (unknown) date) after she ran out unknown) of Provera at the end of 2020, she did not go (unknown) (no (unknown) (unknown) cholecalciferol (units (unknown) date) (vitamin D3) 25 unknown) 5,000 unit PO DAILY 11/21/20 08/05/21 History (unknown) (no (unknown) (unknown) consideration of (units (unknown) date) intravenous iron unknown) infusion for her severe iron deficiency anemia (unknown) (no (unknown) (unknown) d-mannose 500 mg (units (unknown) date) capsule mg PO unknown) 11/21/20 08/05/21 History (unknown) (no (unknown) (unknown) deficiency could (units (unknown) date) be one of the unknown) reasons. I am recommending another round of iron (unknown) (no (unknown) (unknown) fine. She denies (units (unknown) date) shortness of unknown) breath. She denies abdominal pain, but gets (unknown) (no (unknown) (unknown) fluoxetine 10 mg (units (unknown) date) capsule (Prozac) unknown) 10 mg PO DAILY #90 caps 07/15/21 08/05/21 Rx (unknown) (no (unknown) (unknown) fluoxetine 20 mg (units (unknown) date) capsule (Prozac) unknown) 20 mg PO DAILY #90 caps 07/15/21 08/05/21 Rx (unknown) (no (unknown) (unknown) have not (units (unkno wn) date) improved. She is unknown) reporting that she easily gets bruises. (unknown) (no (unknown) (unknown) her job. (units (unkno wn) date) Thereafter, she unknown) once again has been having heavy periods, and (unknown) (no (unknown) (unknown) hyperlipidemia, (units (unknown) date) migraine, asthma, unknown) and vitamin-D deficiency. She was referred to (unknown) (no (unknown) (unknown) hypertension, and (units (unknown) date) possible sleep unknown) apnea. She was referred to our clinic for (unknown) (no (unknown) (unknown) instructed for (units (unknown) date) about 3 months. unknown) The heavy menstrual bleeding improved and were (unknown) (no (unknown) (unknown) laboratory tests (units (unknown) date) including CBC and unknown) iron panels showed significant improvement. (unknown) (no (unknown) (unknown) losartan 100 1 (units (unknown) date) tab PO DAILY #90 unknown) tabs 07/15/21 08/05/21 Rx (unknown) (no (unknown) (unknown) lunch time. (units (un known) date) Clinically, she unknown) said she is tired all the time. Her appetite is (unknown) (no (unknown) (unknown) mcg (1,000 unit) (units (unknown) date) capsule unknown) (unknown) (no (unknown) (unknown) metoprolol (units (unk nown) date) succinate 25 mg 50 unknown) mg PO DAILY #90 tabs 06/23/21 08/05/21 Rx (unknown) (no (unknown) (unknown) mg-hydrochlorothi (units (unknown) date) azide 25 mg tablet unknown) (unknown) (no (unknown) (unknown) morbid obesity, (units (unknown) date) intramural uterine unknown) fibroid and heavy menstrual periods. Dr Street (unknown) (no (unknown) (unknown) multivitamin (units (u nknown) date) (Multiple Vitamins unknown) 1 tab PO QDAY ##0 06/15/16 08/05/21 History (unknown) (no (unknown) (unknown) nauseous a lot. (units (unknown) date) No blood in the unknown) stool. (unknown) (no (unknown) (unknown) noticed any (units (un known) date) improvement as far unknown) as her symptoms are concerned. For example, she (unknown) (no (unknown) (unknown) our clinic for (units (unknown) date) evaluation of iron unknown) deficiency anemia. She also has history of (unknown) (no (unknown) (unknown) reasons including (units (unknown) date) liver function, unknown) medications, steroid use, etc.. I am (unknown) (no (unknown) (unknown) recommended (units (un known) date) Provera daily 10 unknown) days out of each month. Patient tried Provera as (unknown) (no (unknown) (unknown) recommending that (units (unknown) date) we continue to unknown) monitor at this point and I will check PT/PTT (unknown) (no (unknown) (unknown) remarkably her (units (unknown) date) cycles are very unknown) regular. (unknown) (no (unknown) (unknown) rizatriptan 10 mg (units (unknown) date) tablet 10 mg PO unknown) .prn headache #30 tabs 05/29/21 08/05/21 Rx (unknown) (no (unknown) (unknown) still feels (units (un known) date) tired. She unknown) admitted that her menstrual bleeding remains heavy and (unknown) (no (unknown) (unknown) stomach, she (units (u nknown) date) feels sick. She unknown) has noticed nauseated after taking iron pill at (unknown) (no (unknown) (unknown) tablet) (units (unkno wn) date) unknown) (unknown) (no (unknown) (unknown) tablet,extended (units (unknown) date) release 24 hr unknown) (unknown) (no (unknown) (unknown) talked with her (units (unknown) date) that the fatigue unknown) could be due to other factors, but iron (unknown) (no (unknown) (unknown) verapamil 40 mg (units (unknown) date) tablet 40 mg PO unknown) TID #270 tabs 05/29/21 08/05/21 Rx (unknown) (no (unknown) (unknown) when she comes (units (unknown) date) back for follow up unknown) visit. Result panel 11 (unknown) (no date) (unknown) (unknown) 0 /ul (unkn own) (unknown) (no date) (unknown) (unknown) 0.5 % (unkn own) (unknown) (no date) (unknown) (unknown) 12.2 g/dl (unkn own) (unknown) (no date) (unknown) (unknown) 1400 /ul (unkn own) (unknown) (no date) (unknown) (unknown) 15.5 % (unkn own) (unknown) (no date) (unknown) (unknown) 22.3 % (unkn own) (unknown) (no date) (unknown) (unknown) 28.3 pg (unkn own) (unknown) (no date) (unknown) (unknown) 291 x10 3/ul (unkn own) (unknown) (no date) (unknown) (unknown) 33.4 % (unkn own) (unknown) (no date) (unknown) (unknown) 36.4 % (unkn own) (unknown) (no date) (unknown) (unknown) 3800 /ul (unkn own) (unknown) (no date) (unknown) (unknown) 4.30 x10 6/ul (unkn own) (unknown) (no date) (unknown) (unknown) 400 /ul (unkn own) (unknown) (no date) (unknown) (unknown) 500 /ul (unkn own) (unknown) (no date) (unknown) (unknown) 6.1 x10 3/ul (unkn own) (unknown) (no date) (unknown) (unknown) 6.5 % (unkn own) (unknown) (no date) (unknown) (unknown) 62.5 % (unkn own) (unknown) (no date) (unknown) (unknown) 8.2 % (unkn own) (unknown) (no date) (unknown) (unknown) 84.6 fl (unkn own) Result panel 12 (unknown) (no date) (unknown) (unknown) > 60 ml/min (unkn own) (unknown) (no date) (unknown) (unknown) > 60 ml/min (unkn own) (unknown) (no date) (unknown) (unknown) 0.3 mg/dl (unkn own) (unknown) (no date) (unknown) (unknown) 0.82 mg/dl (unkn own) (unknown) (no date) (unknown) (unknown) 1.3 (units unknown) (unknown) (unknown) (no date) (unknown) (unknown) 139 mmol/l (unkn own) (unknown) (no date) (unknown) (unknown) 15 mg/dl (unkn own) (unknown) (no date) (unknown) (unknown) 18.3 (units unknown) (unknown) (unknown) (no date) (unknown) (unknown) 19 iu/l (unkn own) (unknown) (no date) (unknown) (unknown) 19 iu/l (unkn own) (unknown) (no date) (unknown) (unknown) 3.2 mmol/l (unkn own) (unknown) (no date) (unknown) (unknown) 3.3 g/dl (unkn own) (unknown) (no date) (unknown) (unknown) 30 mmol/l (unkn own) (unknown) (no date) (unknown) (unknown) 4.3 g/dl (unkn own) (unknown) (no date) (unknown) (unknown) 49 u/l (unkn own) (unknown) (no date) (unknown) (unknown) 65 ug/dl (unkn own) (unknown) (no date) (unknown) (unknown) 7.6 g/dl (unkn own) (unknown) (no date) (unknown) (unknown) 9.0 mg/dl (unkn own) (unknown) (no date) (unknown) (unknown) 93 mg/dl (unkn own) (unknown) (no date) (unknown) (unknown) 93 mg/dl (unkn own) (unknown) (no date) (unknown) (unknown) 98 mmol/l (unkn own) Result panel 13 (unknown) (no date) (unknown) (unknown) 214 mg/dl (unkn own) (unknown) (no date) (unknown) (unknown) 23 % (unkn own) (unknown) (no date) (unknown) (unknown) 278 ug/dl (unkn own) (unknown) (no date) (unknown) (unknown) 65 ug/dl (unkn own) Result panel 14 (unknown) (no date) (unknown) (unknown) 1.0 (units unknown) (unknown) (unknown) (no date) (unknown) (unknown) 11.5 seconds (unkn own) Result panel 15 (unknown) (no date) (unknown) (unknown) 1.0 (units unknown) (unknown) (unknown) (no date) (unknown) (unknown) 11.5 seconds (unkn own) (unknown) (no date) (unknown) (unknown) 33 seconds (unkn own) (unknown) (no date) (unknown) (unknown) 33 seconds (unkn own) Result panel 16 (unknown) (no date) (unknown) (unknown) > 60 ml/min (unkn own) (unknown) (no date) (unknown) (unknown) > 60 ml/min (unkn own) (unknown) (no date) (unknown) (unknown) 0.3 mg/dl (unkn own) (unknown) (no date) (unknown) (unknown) 0.82 mg/dl (unkn own) (unknown) (no date) (unknown) (unknown) 1.3 (units unknown) (unknown) (unknown) (no date) (unknown) (unknown) 139 mmol/l (unkn own) (unknown) (no date) (unknown) (unknown) 15 mg/dl (unkn own) (unknown) (no date) (unknown) (unknown) 18.3 (units unknown) (unknown) (unknown) (no date) (unknown) (unknown) 19 iu/l (unkn own) (unknown) (no date) (unknown) (unknown) 19 iu/l (unkn own) (unknown) (no date) (unknown) (unknown) 3.2 mmol/l (unkn own) (unknown) (no date) (unknown) (unknown) 3.3 g/dl (unkn own) (unknown) (no date) (unknown) (unknown) 30 mmol/l (unkn own) (unknown) (no date) (unknown) (unknown) 4.3 g/dl (unkn own) (unknown) (no date) (unknown) (unknown) 49 u/l (unkn own) (unknown) (no date) (unknown) (unknown) 7.6 g/dl (unkn own) (unknown) (no date) (unknown) (unknown) 82 ng/ml (unkn own) (unknown) (no date) (unknown) (unknown) 9.0 mg/dl (unkn own) (unknown) (no date) (unknown) (unknown) 93 mg/dl (unkn own) (unknown) (no date) (unknown) (unknown) 93 mg/dl (unkn own) (unknown) (no date) (unknown) (unknown) 98 mmol/l (unkn own) Result panel 17 (unknown) (no (unknown) (unknown) (no value) (units (unk nown) date) unknown) (unknown) (no (unknown) (unknown) #8.5 grams (units (unk nown) date) unknown) (unknown) (no (unknown) (unknown) % Saturation 23 % (units (unknown) date) (15-50) 12/24/21 unknown) 13:27 (unknown) (no (unknown) (unknown) (1) Iron (units (unkno wn) date) deficiency anemia unknown) (unknown) (no (unknown) (unknown) (2) Bruises easily (units (unknown) date) unknown) (unknown) (no (unknown) (unknown) - Date of Visit (units (unknown) date) unknown) (unknown) (no (unknown) (unknown) - Labs (units (unkno wn) date) unknown) (unknown) (no (unknown) (unknown) - Patient (units (unkn own) date) Self-Reported unknown) Symptoms (unknown) (no (unknown) (unknown) [id number] (units (unkn own) date) unknown) (unknown) (no (unknown) (unknown) 01/01/2021. Since (units (unknown) date) patient had not unknown) tried endocrine therapy. Dr. Barrera (unknown) (no (unknown) (unknown) 01/04/22 01/05/22 (units (unknown) date) 01/05/22 unknown) (unknown) (no (unknown) (unknown) 01/05/22 12:25 (units (unknown) date) 98.6 F 72 18 126/69 unknown) 100 (unknown) (no (unknown) (unknown) 01/05/22 (units (unkno wn) date) unknown) (unknown) (no (unknown) (unknown) 23:59 07:59 15:59 (units (unknown) date) unknown) (unknown) (no (unknown) (unknown) 23:59 (units (unkno wn) date) unknown) (unknown) (no (unknown) (unknown) 09/24/2021. She (units (unknown) date) tolerated the unknown) infusion well. However, she said that she has not (unknown) (no (unknown) (unknown) ALT 19 IU/L (<35) (units (unknown) date) 12/24/21 13:27 unknown) (unknown) (no (unknown) (unknown) ANTIBIOTICS)] (units ( unknown) date) unknown) (unknown) (no (unknown) (unknown) APTT 33 SECONDS (units (unknown) date) (26-36) 12/24/21 unknown) 13:27 (unknown) (no (unknown) (unknown) AST 19 IU/L (units (un known) date) (14-36) 12/24/21 unknown) 13:27 (unknown) (no (unknown) (unknown) Age/Sex: 46 / F (units (unknown) date) unknown) (unknown) (no (unknown) (unknown) Albumin 4.3 g/dL (units (unknown) date) (3.5-5.0) 12/24/21 unknown) 13:27 (unknown) (no (unknown) (unknown) Albumin/Globulin (units (unknown) date) Ratio 1.3 (1.0-2.8) unknown) 12/24/21 13:27 (unknown) (no (unknown) (unknown) Alkaline (units (unkno wn) date) Phosphatase 49 U/L unknown) (38-126) 12/24/21 13:27 (unknown) (no (unknown) (unknown) Allergies (units (unkn own) date) unknown) (unknown) (no (unknown) (unknown) Allergy/AdvReac (units (unknown) date) Type Severity unknown) Reaction Status Date / Time (unknown) (no (unknown) (unknown) Antibiotics) (units (u nknown) date) unknown) (unknown) (no (unknown) (unknown) Assessment and (units (unknown) date) Plan unknown) (unknown) (no (unknown) (unknown) BUN 15 mg/dL (units (u nknown) date) (7-17) 12/24/21 unknown) 13:27 (unknown) (no (unknown) (unknown) BUN/Creatinine (units (unknown) date) Ratio 18.3 (6-22) unknown) 12/24/21 13:27 (unknown) (no (unknown) (unknown) Baso # (Auto) 0 (units (unknown) date) /uL (0-100) unknown) 12/24/21 13:27 (unknown) (no (unknown) (unknown) Baso % (Auto) 0.5 (units (unknown) date) % (0-2) 12/24/21 unknown) 13:27 (unknown) (no (unknown) (unknown) Calcium 9.0 mg/dL (units (unknown) date) (8.4-10.2) 12/24/21 unknown) 13:27 (unknown) (no (unknown) (unknown) Carbon Dioxide 30 (units (unknown) date) mmol/L (22-32) unknown) 12/24/21 13:27 (unknown) (no (unknown) (unknown) Chief Complaint: (units (unknown) date) Stephanie is a 46 year unknown) old female with iron deficiency anemia (unknown) (no (unknown) (unknown) Chloride 98 mmol/L (units (unknown) date) (98-107) 12/24/21 unknown) 13:27 (unknown) (no (unknown) (unknown) Comfortable, NAD, (units (unknown) date) pleasant and unknown) cooperative. (unknown) (no (unknown) (unknown) Creatinine 0.82 (units (unknown) date) mg/dL (0.52-1.04) unknown) 12/24/21 13:27 (unknown) (no (unknown) (unknown) : 1975 (units (unknown) date) Acct:[id number] unknown) (unknown) (no (unknown) (unknown) Date of Service: (units (unknown) date) 01/05/22 unknown) (unknown) (no (unknown) (unknown) Date of visit: (units (unknown) date) 01/05/22 unknown) (unknown) (no (unknown) (unknown) Discussion: (units (un known) date) unknown) (unknown) (no (unknown) (unknown) ECOG 0 (units (unkno wn) date) unknown) (unknown) (no (unknown) (unknown) Eos # (Auto) 500 (units (unknown) date) /uL (0-450) H unknown) 12/24/21 13:27 (unknown) (no (unknown) (unknown) Eos % (Auto) 8.2 % (units (unknown) date) (2-4) H 12/24/21 unknown) 13:27 (unknown) (no (unknown) (unknown) Estimated GFR > 60 (units (unknown) date) mL/min (>60) unknown) 12/24/21 13:27 (unknown) (no (unknown) (unknown) Exam (units (unkno wn) date) unknown) (unknown) (no (unknown) (unknown) [place] [employer] (units (unknown) date) evaluated the unknown) patient in 07/2020 and referred Stephanie to [facility] (unknown) (no (unknown) (unknown) Ferritin 82 ng/mL (units (unknown) date) (6-137) 12/24/21 unknown) 13:27 (unknown) (no (unknown) (unknown) Globulin 3.3 g/dL (units (unknown) date) (1.7-4.1) 12/24/21 unknown) 13:27 (unknown) (no (unknown) (unknown) Glucose 93 mg/dL (units (unknown) date) (70-100) 12/24/21 unknown) 13:27 (unknown) (no (unknown) (unknown) Gynecology as (units ( unknown) date) patient desired unknown) surgical management. (unknown) (no (unknown) (unknown) Hct 36.4 % (36-46) (units (unknown) date) 12/24/21 13:27 unknown) (unknown) (no (unknown) (unknown) Hgb 12.2 g/dL (units ( unknown) date) (12.0-16.0) unknown) 12/24/21 13:27 (unknown) (no (unknown) (unknown) History of Present (units (unknown) date) Illnes: unknown) (unknown) (no (unknown) (unknown) Hoarseness, (units (un known) date) Swollen glands unknown) (unknown) (no (unknown) (unknown) Home Medications (units (unknown) date) and Allergies unknown) (unknown) (no (unknown) (unknown) Home Medications (units (unknown) date) unknown) (unknown) (no (unknown) (unknown) However patient (units (unknown) date) still has a low unknown) iron saturation and low ferritin level. I (unknown) (no (unknown) (unknown) I explained to the (units (unknown) date) patient and bruises unknown) can be caused by several different (unknown) (no (unknown) (unknown) INR 1.0 (0.9-1.3) (units (unknown) date) 12/24/21 13:27 unknown) (unknown) (no (unknown) (unknown) Intake and Output (units (unknown) date) unknown) (unknown) (no (unknown) (unknown) Interval history: (units (unknown) date) unknown) (unknown) (no (unknown) (unknown) Iron 65 ug/dL (units ( unknown) date) (37-170) 12/24/21 unknown) 13:27 (unknown) (no (unknown) (unknown) [facility] (units (unknown) date) [address] unknown) [place] [address] (unknown) (no (unknown) (unknown) Laboratory Last (units (unknown) date) Values unknown) (unknown) (no (unknown) (unknown) Lymph # (Auto) (units (unknown) date) 1400 /uL unknown) (2196-7579) 12/24/21 13:27 (unknown) (no (unknown) (unknown) Lymph % (Auto) (units (unknown) date) 22.3 % (25-40) L unknown) 12/24/21 13:27 (unknown) (no (unknown) (unknown) MCH 28.3 PG (units (un known) date) (26-34) 12/24/21 unknown) 13:27 (unknown) (no (unknown) (unknown) MCHC 33.4 % (units (un known) date) (30-36) 12/24/21 unknown) 13:27 (unknown) (no (unknown) (unknown) MCV 84.6 fL (units (un known) date) (80-100) 12/24/21 unknown) 13:27 (unknown) (no (unknown) (unknown) Medication (units (unk nown) date) Instructions unknown) Recorded Confirmed Type (unknown) (no (unknown) (unknown) Sharkey # (Auto) 400 (units (unknown) date) /uL (0-900) unknown) 12/24/21 13:27 (unknown) (no (unknown) (unknown) Sharkey % (Auto) 6.5 (units (unknown) date) % (3-14) 12/24/21 unknown) 13:27 (unknown) (no (unknown) (unknown) Narrative: (units (unk nown) date) unknown) (unknown) (no (unknown) (unknown) Neut # (Auto) 3800 (units (unknown) date) /uL (7051-5677) unknown) 12/24/21 13:27 (unknown) (no (unknown) (unknown) Neut % (Auto) 62.5 (units (unknown) date) % (50-75) 12/24/21 unknown) 13:27 (unknown) (no (unknown) (unknown) Oncology Progress (units (unknown) date) Note unknown) (unknown) (no (unknown) (unknown) Other: (units (unkno wn) date) unknown) (unknown) (no (unknown) (unknown) PN -Subjective (units (unknown) date) unknown) (unknown) (no (unknown) (unknown) PT 11.5 SECONDS (units (unknown) date) (10.1-12.7) unknown) 12/24/21 13:27 (unknown) (no (unknown) (unknown) Patient Weight (units (unknown) date) unknown) (unknown) (no (unknown) (unknown) Patient completed (units (unknown) date) 5 weekly infusions unknown) of Venofer in September,. Patient presents (unknown) (no (unknown) (unknown) Patient: (units (unkno wn) date) Stephanie Rae unknown) MR#: M (unknown) (no (unknown) (unknown) Plan: (units (unkno wn) date) unknown) (unknown) (no (unknown) (unknown) Plt Count 291 (units ( unknown) date) X103/uL (150-400) unknown) 12/24/21 13:27 (unknown) (no (unknown) (unknown) Potassium 3.2 (units ( unknown) date) mmol/L (3.4-5.1) L unknown) 12/24/21 13:27 (unknown) (no (unknown) (unknown) Provider: (units (unkn own) date) Duke Decker MD unknown) (unknown) (no (unknown) (unknown) RBC 4.30 X106/uL (units (unknown) date) (4.0-5.2) 12/24/21 unknown) 13:27 (unknown) (no (unknown) (unknown) RDW 15.5 % (units (unk nown) date) (11.6-14.8) H unknown) 12/24/21 13:27 (unknown) (no (unknown) (unknown) RTC in 3 months, (units (unknown) date) CBC, CMP, iron unknown) profile, ferritin (unknown) (no (unknown) (unknown) Results (units (unkno wn) date) unknown) (unknown) (no (unknown) (unknown) Rx (units (unkno wn) date) unknown) (unknown) (no (unknown) (unknown) SR Cardiovascular (units (unknown) date) issues: Chest pain, unknown) discomfort, tightness (unknown) (no (unknown) (unknown) SR Constitution: (units (unknown) date) Fatigue/Malaise unknown) (unknown) (no (unknown) (unknown) SR (units (unkno wn) date) Gastrointestinal unknown) issues: Abdominal pain (unknown) (no (unknown) (unknown) SR Musculoskeletal (units (unknown) date) issues: Joint pain unknown) or swelling, Difficulty walking (unknown) (no (unknown) (unknown) SR Neuro issues: (units (unknown) date) Numbness or unknown) tingling (unknown) (no (unknown) (unknown) SR ears, nose, (units (unknown) date) mouth, throat unknown) issues: Ears ringing, Congestion, Cough, (unknown) (no (unknown) (unknown) SR respiratory (units (unknown) date) issues: Mucous unknown) (unknown) (no (unknown) (unknown) Tatyana is a (units (unkn own) date) 46-year-old female unknown) with obesity, heavy menstrual periods, asthma, (unknown) (no (unknown) (unknown) Stephanie Rae (units (unknown) date) is a 46 year old unknown) female with history of hypertension, (unknown) (no (unknown) (unknown) Stephanie underwent (units (unknown) date) weekly Venofer unknown) infusion 200 mg iv x 5 from 08/27/2021 to (unknown) (no (unknown) (unknown) She has been taking (units (unknown) date) oral iron 1# daily unknown) for years. It is not working per patient. (unknown) (no (unknown) (unknown) She has noticed (units (unknown) date) that she usually unknown) takes iron pills with food; if taking empty (unknown) (no (unknown) (unknown) She was evaluated (units (unknown) date) by pot puller unknown) Jf Barrera at [place], [place] on (unknown) (no (unknown) (unknown) Signed By: (units (unk nown) date) unknown) (unknown) (no (unknown) (unknown) Sodium 139 mmol/L (units (unknown) date) (137-145) 12/24/21 unknown) 13:27 (unknown) (no (unknown) (unknown) Sulfa (Sulfonamide (units (unknown) date) Allergy unknown) Intermediate SOB Verified 08/05/21 09:40 (unknown) (no (unknown) (unknown) TIBC 278 ug/dL (units (unknown) date) (265-497) 12/24/21 unknown) 13:27 (unknown) (no (unknown) (unknown) Temp Pulse Resp BP (units (unknown) date) Pulse Ox unknown) (unknown) (no (unknown) (unknown) Total Bilirubin (units (unknown) date) 0.3 mg/dL (0.2-1.3) unknown) 12/24/21 13:27 (unknown) (no (unknown) (unknown) Total Protein 7.6 (units (unknown) date) g/dL (6.3-8.2) unknown) 12/24/21 13:27 (unknown) (no (unknown) (unknown) Transferrin 214 (units (unknown) date) mg/dL (206-381) unknown) 12/24/21 13:27 (unknown) (no (unknown) (unknown) Venofer 200 mg iv (units (unknown) date) weekly x 5, unknown) starting next (unknown) (no (unknown) (unknown) Venofer infusion (units (unknown) date) 200 mg iv x 5 from unknown) 08/27/2021 to 09/24/2021 (unknown) (no (unknown) (unknown) Vital Signs (units (un known) date) unknown) (unknown) (no (unknown) (unknown) Vital signs: (units (u nknown) date) unknown) (unknown) (no (unknown) (unknown) WBC 6.1 X103/uL (units (unknown) date) (4.5-11.0) 12/24/21 unknown) 13:27 (unknown) (no (unknown) (unknown) Weight 111.2 kg (units (unknown) date) unknown) (unknown) (no (unknown) (unknown) [SULFA (units (unkno wn) date) (SULFONAMIDE unknown) (unknown) (no (unknown) (unknown) above 100. Patient (units (unknown) date) voiced unknown) understanding and agreement. (unknown) (no (unknown) (unknown) adhesive (units (unkno wn) date) [ADHESIVE] AdvReac unknown) Mild local welt Verified 08/05/21 09:40 (unknown) (no (unknown) (unknown) aerosol inhaler (units (unknown) date) (Proventil HFA) unknown) shortness of breath or wheezing (unknown) (no (unknown) (unknown) albuterol sulfate (units (unknown) date) 90 mcg/actuation 2 unknown) puff inhalation Q4-6H PRN 12/23/20 08/05/21 (unknown) (no (unknown) (unknown) as a result of (units (unknown) date) uterine fibroid unknown) with heavy menstrual periods. She underwent (unknown) (no (unknown) (unknown) back to [place], [place] (units (unknown) date) for follow-up. She unknown) said she was having difficulty because of (unknown) (no (unknown) (unknown) better. However (units (unknown) date) after she ran out unknown) of Provera at the end of 2020, she did not go (unknown) (no (unknown) (unknown) cholecalciferol (units (unknown) date) (vitamin D3) 25 unknown) 5,000 unit PO DAILY 11/21/20 08/05/21 History (unknown) (no (unknown) (unknown) comes back for (units (unknown) date) follow up visit. unknown) (unknown) (no (unknown) (unknown) consideration of (units (unknown) date) intravenous iron unknown) infusion for her severe iron deficiency anemia (unknown) (no (unknown) (unknown) d-mannose 500 mg (units (unknown) date) capsule mg PO unknown) 11/21/20 08/05/21 History (unknown) (no (unknown) (unknown) deficiency could (units (unknown) date) be one of the unknown) reasons. I am recommending another round of iron (unknown) (no (unknown) (unknown) fine. She denies (units (unknown) date) shortness of unknown) breath. She denies abdominal pain, but gets (unknown) (no (unknown) (unknown) fluoxetine 10 mg (units (unknown) date) capsule (Prozac) 10 unknown) mg PO DAILY #90 caps 07/15/21 08/05/21 Rx (unknown) (no (unknown) (unknown) fluoxetine 20 mg (units (unknown) date) capsule (Prozac) 20 unknown) mg PO DAILY #90 caps 07/15/21 08/05/21 Rx (unknown) (no (unknown) (unknown) have not improved. (units (unknown) date) She is reporting unknown) that she easily gets bruises. (unknown) (no (unknown) (unknown) her job. (units (unkno wn) date) Thereafter, she unknown) once again has been having heavy periods, and (unknown) (no (unknown) (unknown) here today for (units (unknown) date) scheduled follow-up unknown) visit. I explained to the patient that the (unknown) (no (unknown) (unknown) hyperlipidemia, (units (unknown) date) migraine, asthma, unknown) and vitamin-D deficiency. She was referred to (unknown) (no (unknown) (unknown) hypertension, and (units (unknown) date) possible sleep unknown) apnea. She was referred to our clinic for (unknown) (no (unknown) (unknown) infusions. The (units (unknown) date) goal is to keep the unknown) saturation above 20% and or ferritin level (unknown) (no (unknown) (unknown) instructed for (units (unknown) date) about 3 months. The unknown) heavy menstrual bleeding improved and were (unknown) (no (unknown) (unknown) laboratory tests (units (unknown) date) including CBC and unknown) iron panels showed significant improvement. (unknown) (no (unknown) (unknown) losartan 100 1 tab (units (unknown) date) PO DAILY #90 tabs unknown) 07/15/21 08/05/21 Rx (unknown) (no (unknown) (unknown) lunch time. (units (un known) date) Clinically, she unknown) said she is tired all the time. Her appetite is (unknown) (no (unknown) (unknown) mcg (1,000 unit) (units (unknown) date) capsule unknown) (unknown) (no (unknown) (unknown) metoprolol (units (unk nown) date) succinate 25 mg 50 unknown) mg PO DAILY #90 tabs 06/23/21 08/05/21 Rx (unknown) (no (unknown) (unknown) mg-hydrochlorothia (units (unknown) date) zide 25 mg tablet unknown) (unknown) (no (unknown) (unknown) morbid obesity, (units (unknown) date) intramural uterine unknown) fibroid and heavy menstrual periods. Dr Street (unknown) (no (unknown) (unknown) multivitamin (units (u nknown) date) (Multiple Vitamins unknown) 1 tab PO QDAY ##0 06/15/16 08/05/21 History (unknown) (no (unknown) (unknown) nauseous a lot. No (units (unknown) date) blood in the stool. unknown) (unknown) (no (unknown) (unknown) nding that we (units (u nknown) date) continue to monitor unknown) at this point and I will check PT/PTT when she (unknown) (no (unknown) (unknown) noticed any (units (un known) date) improvement as far unknown) as her symptoms are concerned. For example, she (unknown) (no (unknown) (unknown) our clinic for (units (unknown) date) evaluation of iron unknown) deficiency anemia. She also has history of (unknown) (no (unknown) (unknown) reasons including (units (unknown) date) liver function, unknown) medications, steroid use, etc.. I am recomme (unknown) (no (unknown) (unknown) recommended (units (un known) date) Provera daily 10 unknown) days out of each month. Patient tried Provera as (unknown) (no (unknown) (unknown) remarkably her (units (unknown) date) cycles are very unknown) regular. (unknown) (no (unknown) (unknown) rizatriptan 10 mg (units (unknown) date) tablet 10 mg PO unknown) .prn headache #30 tabs 05/29/21 08/05/21 Rx (unknown) (no (unknown) (unknown) still feels tired. (units (unknown) date) She admitted that unknown) her menstrual bleeding remains heavy and (unknown) (no (unknown) (unknown) stomach, she feels (units (unknown) date) sick. She has unknown) noticed nauseated after taking iron pill at (unknown) (no (unknown) (unknown) tablet) (units (unkno wn) date) unknown) (unknown) (no (unknown) (unknown) tablet,extended (units (unknown) date) release 24 hr unknown) (unknown) (no (unknown) (unknown) talked with her (units (unknown) date) that the fatigue unknown) could be due to other factors, but iron (unknown) (no (unknown) (unknown) verapamil 40 mg (units (unknown) date) tablet 40 mg PO TID unknown) #270 tabs 05/29/21 08/05/21 Rx Result panel 18 (unknown) (no (unknown) (unknown) (no value) (units (unk nown) date) unknown) (unknown) (no (unknown) (unknown) #8.5 grams (units (unk nown) date) unknown) (unknown) (no (unknown) (unknown) % Saturation 23 % (units (unknown) date) (15-50) 12/24/21 unknown) 13:27 (unknown) (no (unknown) (unknown) (1) Iron (units (unkno wn) date) deficiency anemia unknown) (unknown) (no (unknown) (unknown) (2) Bruises easily (units (unknown) date) unknown) (unknown) (no (unknown) (unknown) - Date of Visit (units (unknown) date) unknown) (unknown) (no (unknown) (unknown) - Labs (units (unkno wn) date) unknown) (unknown) (no (unknown) (unknown) - Patient (units (unkn own) date) Self-Reported unknown) Symptoms (unknown) (no (unknown) (unknown) [id number] (units (unkn own) date) unknown) (unknown) (no (unknown) (unknown) 11/12/2021 to (units ( unknown) date) 12/10/2021. She unknown) tolerated the infusion well. Due to poor (unknown) (no (unknown) (unknown) 01/01/2021. Since (units (unknown) date) patient had not unknown) tried endocrine therapy. Dr. Barrera (unknown) (no (unknown) (unknown) 01/04/22 01/05/22 (units (unknown) date) 01/05/22 unknown) (unknown) (no (unknown) (unknown) 01/05/22 12:25 (units (unknown) date) 98.6 F 72 18 126/69 unknown) 100 (unknown) (no (unknown) (unknown) 01/05/22 (units (unkno wn) date) unknown) (unknown) (no (unknown) (unknown) 23:59 07:59 15:59 (units (unknown) date) unknown) (unknown) (no (unknown) (unknown) 23:59 (units (unkno wn) date) unknown) (unknown) (no (unknown) (unknown) ALT 19 IU/L (<35) (units (unknown) date) 12/24/21 13:27 unknown) (unknown) (no (unknown) (unknown) ANTIBIOTICS)] (units ( unknown) date) unknown) (unknown) (no (unknown) (unknown) APTT 33 SECONDS (units (unknown) date) (26-36) 12/24/21 unknown) 13:27 (unknown) (no (unknown) (unknown) AST 19 IU/L (units (un known) date) (14-36) 12/24/21 unknown) 13:27 (unknown) (no (unknown) (unknown) Age/Sex: 46 / F (units (unknown) date) unknown) (unknown) (no (unknown) (unknown) Albumin 4.3 g/dL (units (unknown) date) (3.5-5.0) 12/24/21 unknown) 13:27 (unknown) (no (unknown) (unknown) Albumin/Globulin (units (unknown) date) Ratio 1.3 (1.0-2.8) unknown) 12/24/21 13:27 (unknown) (no (unknown) (unknown) Alkaline (units (unkno wn) date) Phosphatase 49 U/L unknown) (38-126) 12/24/21 13:27 (unknown) (no (unknown) (unknown) Allergies (units (unkn own) date) unknown) (unknown) (no (unknown) (unknown) Allergy/AdvReac (units (unknown) date) Type Severity unknown) Reaction Status Date / Time (unknown) (no (unknown) (unknown) Antibiotics) (units (u nknown) date) unknown) (unknown) (no (unknown) (unknown) Assessment and (units (unknown) date) Plan unknown) (unknown) (no (unknown) (unknown) BUN 15 mg/dL (units (u nknown) date) (7-17) 12/24/21 unknown) 13:27 (unknown) (no (unknown) (unknown) BUN/Creatinine (units (unknown) date) Ratio 18.3 (6-22) unknown) 12/24/21 13:27 (unknown) (no (unknown) (unknown) Baso # (Auto) 0 (units (unknown) date) /uL (0-100) unknown) 12/24/21 13:27 (unknown) (no (unknown) (unknown) Baso % (Auto) 0.5 (units (unknown) date) % (0-2) 12/24/21 unknown) 13:27 (unknown) (no (unknown) (unknown) Calcium 9.0 mg/dL (units (unknown) date) (8.4-10.2) 12/24/21 unknown) 13:27 (unknown) (no (unknown) (unknown) Carbon Dioxide 30 (units (unknown) date) mmol/L (22-32) unknown) 12/24/21 13:27 (unknown) (no (unknown) (unknown) Chief Complaint: (units (unknown) date) Stephanie is a 46 year unknown) old female with iron deficiency anemia (unknown) (no (unknown) (unknown) Chloride 98 mmol/L (units (unknown) date) (98-107) 12/24/21 unknown) 13:27 (unknown) (no (unknown) (unknown) Comfortable, NAD, (units (unknown) date) pleasant and unknown) cooperative. (unknown) (no (unknown) (unknown) Creatinine 0.82 (units (unknown) date) mg/dL (0.52-1.04) unknown) 12/24/21 13:27 (unknown) (no (unknown) (unknown) : 1975 (units (unknown) date) Acct:[id number] unknown) (unknown) (no (unknown) (unknown) Date of Service: (units (unknown) date) 01/05/22 unknown) (unknown) (no (unknown) (unknown) Date of visit: (units (unknown) date) 01/05/22 unknown) (unknown) (no (unknown) (unknown) Discussion: (units (un known) date) unknown) (unknown) (no (unknown) (unknown) ECOG 0 (units (unkno wn) date) unknown) (unknown) (no (unknown) (unknown) Eos # (Auto) 500 (units (unknown) date) /uL (0-450) H unknown) 12/24/21 13:27 (unknown) (no (unknown) (unknown) Eos % (Auto) 8.2 % (units (unknown) date) (2-4) H 12/24/21 unknown) 13:27 (unknown) (no (unknown) (unknown) Estimated GFR > 60 (units (unknown) date) mL/min (>60) unknown) 12/24/21 13:27 (unknown) (no (unknown) (unknown) Exam (units (unkno wn) date) unknown) (unknown) (no (unknown) (unknown) [place] [employer] (units (unknown) date) evaluated the unknown) patient in 07/2020 and referred Stephanie to [facility] (unknown) (no (unknown) (unknown) Ferritin 82 ng/mL (units (unknown) date) (6-137) 12/24/21 unknown) 13:27 (unknown) (no (unknown) (unknown) Globulin 3.3 g/dL (units (unknown) date) (1.7-4.1) 12/24/21 unknown) 13:27 (unknown) (no (unknown) (unknown) Glucose 93 mg/dL (units (unknown) date) (70-100) 12/24/21 unknown) 13:27 (unknown) (no (unknown) (unknown) Gynecology as (units ( unknown) date) patient desired unknown) surgical management. (unknown) (no (unknown) (unknown) Hct 36.4 % (36-46) (units (unknown) date) 12/24/21 13:27 unknown) (unknown) (no (unknown) (unknown) Hgb 12.2 g/dL (units ( unknown) date) (12.0-16.0) unknown) 12/24/21 13:27 (unknown) (no (unknown) (unknown) History of Present (units (unknown) date) Illnes: unknown) (unknown) (no (unknown) (unknown) Hoarseness, (units (un known) date) Swollen glands unknown) (unknown) (no (unknown) (unknown) Home Medications (units (unknown) date) and Allergies unknown) (unknown) (no (unknown) (unknown) Home Medications (units (unknown) date) unknown) (unknown) (no (unknown) (unknown) However patient (units (unknown) date) still has a low unknown) iron saturation and low ferritin level. I (unknown) (no (unknown) (unknown) I explained to the (units (unknown) date) patient and bruises unknown) can be caused by several different (unknown) (no (unknown) (unknown) INR 1.0 (0.9-1.3) (units (unknown) date) 12/24/21 13:27 unknown) (unknown) (no (unknown) (unknown) Intake and Output (units (unknown) date) unknown) (unknown) (no (unknown) (unknown) Interval history: (units (unknown) date) unknown) (unknown) (no (unknown) (unknown) Iron 65 ug/dL (units ( unknown) date) (37-170) 12/24/21 unknown) 13:27 (unknown) (no (unknown) (unknown) [facility] (units (unknown) date) [address] unknown) [place] [address] (unknown) (no (unknown) (unknown) Laboratory Last (units (unknown) date) Values unknown) (unknown) (no (unknown) (unknown) Lymph # (Auto) (units (unknown) date) 1400 /uL unknown) ([id number]) 12/24/21 13:27 (unknown) (no (unknown) (unknown) Lymph % (Auto) (units (unknown) date) 22.3 % (25-40) L unknown) 12/24/21 13:27 (unknown) (no (unknown) (unknown) MCH 28.3 PG (units (un known) date) (26-34) 12/24/21 unknown) 13:27 (unknown) (no (unknown) (unknown) MCHC 33.4 % (units (un known) date) (30-36) 12/24/21 unknown) 13:27 (unknown) (no (unknown) (unknown) MCV 84.6 fL (units (un known) date) (80-100) 12/24/21 unknown) 13:27 (unknown) (no (unknown) (unknown) Medication (units (unk nown) date) Instructions unknown) Recorded Confirmed Type (unknown) (no (unknown) (unknown) Sharkey # (Auto) 400 (units (unknown) date) /uL (0-900) unknown) 12/24/21 13:27 (unknown) (no (unknown) (unknown) Sharkey % (Auto) 6.5 (units (unknown) date) % (3-14) 12/24/21 unknown) 13:27 (unknown) (no (unknown) (unknown) Narrative: (units (unk nown) date) unknown) (unknown) (no (unknown) (unknown) Neut # (Auto) 3800 (units (unknown) date) /uL (1325-4370) unknown) 12/24/21 13:27 (unknown) (no (unknown) (unknown) Neut % (Auto) 62.5 (units (unknown) date) % (50-75) 12/24/21 unknown) 13:27 (unknown) (no (unknown) (unknown) Oncology Progress (units (unknown) date) Note unknown) (unknown) (no (unknown) (unknown) Other: (units (unkno wn) date) unknown) (unknown) (no (unknown) (unknown) PN -Subjective (units (unknown) date) unknown) (unknown) (no (unknown) (unknown) PT 11.5 SECONDS (units (unknown) date) (10.1-12.7) unknown) 12/24/21 13:27 (unknown) (no (unknown) (unknown) Patient Weight (units (unknown) date) unknown) (unknown) (no (unknown) (unknown) Patient completed (units (unknown) date) 5 weekly infusions unknown) of [facility] in September,. Patient presents (unknown) (no (unknown) (unknown) Patient: (units (unkno wn) date) Stephanie Rae unknown) MR#: [id number] (unknown) (no (unknown) (unknown) Plan: (units (unkno wn) date) unknown) (unknown) (no (unknown) (unknown) Plt Count 291 (units ( unknown) date) X103/uL (150-400) unknown) 12/24/21 13:27 (unknown) (no (unknown) (unknown) Potassium 3.2 (units ( unknown) date) mmol/L (3.4-5.1) L unknown) 12/24/21 13:27 (unknown) (no (unknown) (unknown) Provider: (units (unkn own) date) Duke Decker MD unknown) (unknown) (no (unknown) (unknown) RBC 4.30 X106/uL (units (unknown) date) (4.0-5.2) 12/24/21 unknown) 13:27 (unknown) (no (unknown) (unknown) RDW 15.5 % (units (unk nown) date) (11.6-14.8) H unknown) 12/24/21 13:27 (unknown) (no (unknown) (unknown) RTC in 3 months, (units (unknown) date) CBC, CMP, iron unknown) profile, ferritin (unknown) (no (unknown) (unknown) Results (units (unkno wn) date) unknown) (unknown) (no (unknown) (unknown) Rx (units (unkno wn) date) unknown) (unknown) (no (unknown) (unknown) SR Cardiovascular (units (unknown) date) issues: Chest pain, unknown) discomfort, tightness (unknown) (no (unknown) (unknown) SR Constitution: (units (unknown) date) Fatigue/Malaise unknown) (unknown) (no (unknown) (unknown) SR (units (unkno wn) date) Gastrointestinal unknown) issues: Abdominal pain (unknown) (no (unknown) (unknown) SR Musculoskeletal (units (unknown) date) issues: Joint pain unknown) or swelling, Difficulty walking (unknown) (no (unknown) (unknown) SR Neuro issues: (units (unknown) date) Numbness or unknown) tingling (unknown) (no (unknown) (unknown) SR ears, nose, (units (unknown) date) mouth, throat unknown) issues: Ears ringing, Congestion, Cough, (unknown) (no (unknown) (unknown) SR respiratory (units (unknown) date) issues: Mucous unknown) (unknown) (no (unknown) (unknown) Tatyana is a (units (unkn own) date) 46-year-old female unknown) with obesity, heavy menstrual periods, asthma, (unknown) (no (unknown) (unknown) Stephanie Rae (units (unknown) date) is a 46 year old unknown) female with history of hypertension, (unknown) (no (unknown) (unknown) Stephanie underwent (units (unknown) date) second round of unknown) weekly Venofer infusion 200 mg iv x 5 from (unknown) (no (unknown) (unknown) She was evaluated (units (unknown) date) by pot puller unknown) Jf Barrera at [place], [place] on (unknown) (no (unknown) (unknown) Signed By: (units (unk nown) date) unknown) (unknown) (no (unknown) (unknown) Sodium 139 mmol/L (units (unknown) date) (137-145) 12/24/21 unknown) 13:27 (unknown) (no (unknown) (unknown) Sulfa (Sulfonamide (units (unknown) date) Allergy unknown) Intermediate SOB Verified 08/05/21 09:40 (unknown) (no (unknown) (unknown) TIBC 278 ug/dL (units (unknown) date) (265-497) 12/24/21 unknown) 13:27 (unknown) (no (unknown) (unknown) Temp Pulse Resp BP (units (unknown) date) Pulse Ox unknown) (unknown) (no (unknown) (unknown) Total Bilirubin (units (unknown) date) 0.3 mg/dL (0.2-1.3) unknown) 12/24/21 13:27 (unknown) (no (unknown) (unknown) Total Protein 7.6 (units (unknown) date) g/dL (6.3-8.2) unknown) 12/24/21 13:27 (unknown) (no (unknown) (unknown) Transferrin 214 (units (unknown) date) mg/dL (206-381) unknown) 12/24/21 13:27 (unknown) (no (unknown) (unknown) Venofer 200 mg iv (units (unknown) date) weekly x 5, unknown) starting next (unknown) (no (unknown) (unknown) Venofer infusion (units (unknown) date) 200 mg iv x 5 from unknown) 08/27/2021 to 09/24/2021 (unknown) (no (unknown) (unknown) Vital Signs (units (un known) date) unknown) (unknown) (no (unknown) (unknown) Vital signs: (units (u nknown) date) unknown) (unknown) (no (unknown) (unknown) WBC 6.1 X103/uL (units (unknown) date) (4.5-11.0) 12/24/21 unknown) 13:27 (unknown) (no (unknown) (unknown) Weight 111.2 kg (units (unknown) date) unknown) (unknown) (no (unknown) (unknown) [SULFA (units (unkno wn) date) (SULFONAMIDE unknown) (unknown) (no (unknown) (unknown) above 100. Patient (units (unknown) date) voiced unknown) understanding and agreement. (unknown) (no (unknown) (unknown) adhesive (units (unkno wn) date) [ADHESIVE] AdvReac unknown) Mild local welt Verified 08/05/21 09:40 (unknown) (no (unknown) (unknown) advised the (units (un known) date) patient to unknown) completely stop oral iron supplementation. Patient (unknown) (no (unknown) (unknown) aerosol inhaler (units (unknown) date) (Proventil HFA) unknown) shortness of breath or wheezing (unknown) (no (unknown) (unknown) albuterol sulfate (units (unknown) date) 90 mcg/actuation 2 unknown) puff inhalation Q4-6H PRN 12/23/20 08/05/21 (unknown) (no (unknown) (unknown) as a result of (units (unknown) date) uterine fibroid unknown) with heavy menstrual periods. She underwent (unknown) (no (unknown) (unknown) back to [place], [place] (units (unknown) date) for follow-up. She unknown) said she was having difficulty because of (unknown) (no (unknown) (unknown) better. However (units (unknown) date) after she ran out unknown) of Provera at the end of 2020, she did not go (unknown) (no (unknown) (unknown) cholecalciferol (units (unknown) date) (vitamin D3) 25 unknown) 5,000 unit PO DAILY 11/21/20 08/05/21 History (unknown) (no (unknown) (unknown) consideration of (units (unknown) date) intravenous iron unknown) infusion for her severe iron deficiency anemia (unknown) (no (unknown) (unknown) d-mannose 500 mg (units (unknown) date) capsule mg PO unknown) 11/21/20 08/05/21 History (unknown) (no (unknown) (unknown) deficiency could (units (unknown) date) be one of the unknown) reasons. I am recommending another round of iron (unknown) (no (unknown) (unknown) fluoxetine 10 mg (units (unknown) date) capsule (Prozac) 10 unknown) mg PO DAILY #90 caps 07/15/21 08/05/21 Rx (unknown) (no (unknown) (unknown) fluoxetine 20 mg (units (unknown) date) capsule (Prozac) 20 unknown) mg PO DAILY #90 caps 07/15/21 08/05/21 Rx (unknown) (no (unknown) (unknown) her job. (units (unkno wn) date) Thereafter, she unknown) once again has been having heavy periods, and (unknown) (no (unknown) (unknown) here today for (units (unknown) date) scheduled follow-up unknown) visit. I explained to the patient that the (unknown) (no (unknown) (unknown) however continues (units (unknown) date) to have significant unknown) vaginal bleeding and she has not gone back (unknown) (no (unknown) (unknown) hyperlipidemia, (units (unknown) date) migraine, asthma, unknown) and vitamin-D deficiency. She was referred to (unknown) (no (unknown) (unknown) hypertension, and (units (unknown) date) possible sleep unknown) apnea. She was referred to our clinic for (unknown) (no (unknown) (unknown) infusions. The (units (unknown) date) goal is to keep the unknown) saturation above 20% and or ferritin level (unknown) (no (unknown) (unknown) instructed for (units (unknown) date) about 3 months. The unknown) heavy menstrual bleeding improved and were (unknown) (no (unknown) (unknown) laboratory tests (units (unknown) date) including CBC and unknown) iron panels showed significant improvement. (unknown) (no (unknown) (unknown) losartan 100 1 tab (units (unknown) date) PO DAILY #90 tabs unknown) 07/15/21 08/05/21 Rx (unknown) (no (unknown) (unknown) mcg (1,000 unit) (units (unknown) date) capsule unknown) (unknown) (no (unknown) (unknown) metoprolol (units (unk nown) date) succinate 25 mg 50 unknown) mg PO DAILY #90 tabs 06/23/21 08/05/21 Rx (unknown) (no (unknown) (unknown) mg-hydrochlorothia (units (unknown) date) zide 25 mg tablet unknown) (unknown) (no (unknown) (unknown) morbid obesity, (units (unknown) date) intramural uterine unknown) fibroid and heavy menstrual periods. Dr Street (unknown) (no (unknown) (unknown) multivitamin (units (u nknown) date) (Multiple Vitamins unknown) 1 tab PO QDAY ##0 06/15/16 08/05/21 History (unknown) (no (unknown) (unknown) our clinic for (units (unknown) date) evaluation of iron unknown) deficiency anemia. She also has history of (unknown) (no (unknown) (unknown) reasons including (units (unknown) date) liver function, unknown) medications, steroid use, etc.. I am (unknown) (no (unknown) (unknown) recommended (units (un known) date) Provera daily 10 unknown) days out of each month. Patient tried Provera as (unknown) (no (unknown) (unknown) recommending that (units (unknown) date) we continue to unknown) monitor at this point and I will check PT/PTT (unknown) (no (unknown) (unknown) remarkably her (units (unknown) date) cycles are very unknown) regular. (unknown) (no (unknown) (unknown) rizatriptan 10 mg (units (unknown) date) tablet 10 mg PO unknown) .prn headache #30 tabs 05/29/21 08/05/21 Rx (unknown) (no (unknown) (unknown) tablet) (units (unkno wn) date) unknown) (unknown) (no (unknown) (unknown) tablet,extended (units (unknown) date) release 24 hr unknown) (unknown) (no (unknown) (unknown) talked with her (units (unknown) date) that the fatigue unknown) could be due to other factors, but iron (unknown) (no (unknown) (unknown) to see her primary (units (unknown) date) care provider and unknown) her OBGYN for follow-up visit yet. (unknown) (no (unknown) (unknown) tolerability and (units (unknown) date) ineffective outcome unknown) with oral iron supplementation, I have (unknown) (no (unknown) (unknown) verapamil 40 mg (units (unknown) date) tablet 40 mg PO TID unknown) #270 tabs 05/29/21 08/05/21 Rx (unknown) (no (unknown) (unknown) when she comes (units (unknown) date) back for follow up unknown) visit. Result panel 19 (unknown) (no (unknown) (unknown) (no value) (units (unk nown) date) unknown) (unknown) (no (unknown) (unknown) #8.5 grams (units (unk nown) date) unknown) (unknown) (no (unknown) (unknown) % Saturation 23 % (units (unknown) date) (15-50) 12/24/21 unknown) 13:27 (unknown) (no (unknown) (unknown) (1) Iron (units (unkno wn) date) deficiency anemia unknown) (unknown) (no (unknown) (unknown) (2) Bruises easily (units (unknown) date) unknown) (unknown) (no (unknown) (unknown) - Date of Visit (units (unknown) date) unknown) (unknown) (no (unknown) (unknown) - Labs (units (unkno wn) date) unknown) (unknown) (no (unknown) (unknown) - Patient (units (unkn own) date) Self-Reported unknown) Symptoms (unknown) (no (unknown) (unknown) - ROS (units (unkno wn) date) unknown) (unknown) (no (unknown) (unknown) [id number] (units (unkn own) date) unknown) (unknown) (no (unknown) (unknown) 11/12/2021 to (units ( unknown) date) 12/10/2021. She unknown) tolerated the infusion well. Due to poor (unknown) (no (unknown) (unknown) 01/01/2021. Since (units (unknown) date) patient had not unknown) tried endocrine therapy. Dr. Barrera (unknown) (no (unknown) (unknown) ALT 19 IU/L (<35) (units (unknown) date) 12/24/21 13:27 unknown) (unknown) (no (unknown) (unknown) ANTIBIOTICS)] (units ( unknown) date) unknown) (unknown) (no (unknown) (unknown) APTT 33 SECONDS (units (unknown) date) (26-36) 12/24/21 unknown) 13:27 (unknown) (no (unknown) (unknown) AST 19 IU/L (units (un known) date) (14-36) 12/24/21 unknown) 13:27 (unknown) (no (unknown) (unknown) Age/Sex: 46 / F (units (unknown) date) unknown) (unknown) (no (unknown) (unknown) Albumin 4.3 g/dL (units (unknown) date) (3.5-5.0) 12/24/21 unknown) 13:27 (unknown) (no (unknown) (unknown) Albumin/Globulin (units (unknown) date) Ratio 1.3 (1.0-2.8) unknown) 12/24/21 13:27 (unknown) (no (unknown) (unknown) Alkaline (units (unkno wn) date) Phosphatase 49 U/L unknown) (38-126) 12/24/21 13:27 (unknown) (no (unknown) (unknown) All Systems: (units (u nknown) date) reviewed and no unknown) additional remarkable complaints except as stated (unknown) (no (unknown) (unknown) Allergies (units (unkn own) date) unknown) (unknown) (no (unknown) (unknown) Allergy/AdvReac (units (unknown) date) Type Severity unknown) Reaction Status Date / Time (unknown) (no (unknown) (unknown) Antibiotics) (units (u nknown) date) unknown) (unknown) (no (unknown) (unknown) Assessment and (units (unknown) date) Plan unknown) (unknown) (no (unknown) (unknown) BP 126/69 01/05/22 (units (unknown) date) 12:25 unknown) (unknown) (no (unknown) (unknown) BUN 15 mg/dL (units (u nknown) date) (7-17) 12/24/21 unknown) 13:27 (unknown) (no (unknown) (unknown) BUN/Creatinine (units (unknown) date) Ratio 18.3 (6-22) unknown) 12/24/21 13:27 (unknown) (no (unknown) (unknown) Baso # (Auto) 0 (units (unknown) date) /uL (0-100) unknown) 12/24/21 13:27 (unknown) (no (unknown) (unknown) Baso % (Auto) 0.5 (units (unknown) date) % (0-2) 12/24/21 unknown) 13:27 (unknown) (no (unknown) (unknown) Calcium 9.0 mg/dL (units (unknown) date) (8.4-10.2) 12/24/21 unknown) 13:27 (unknown) (no (unknown) (unknown) Carbon Dioxide 30 (units (unknown) date) mmol/L (22-32) unknown) 12/24/21 13:27 (unknown) (no (unknown) (unknown) Chief Complaint: (units (unknown) date) Stephanie is a 46 year unknown) old female with iron deficiency anemia (unknown) (no (unknown) (unknown) Chloride 98 mmol/L (units (unknown) date) (98-107) 12/24/21 unknown) 13:27 (unknown) (no (unknown) (unknown) Comfortable, NAD, (units (unknown) date) pleasant and unknown) cooperative. (unknown) (no (unknown) (unknown) Creatinine 0.82 (units (unknown) date) mg/dL (0.52-1.04) unknown) 12/24/21 13:27 (unknown) (no (unknown) (unknown) : 1975 (units (unknown) date) Acct:[id number] unknown) (unknown) (no (unknown) (unknown) Date of Service: (units (unknown) date) 01/05/22 unknown) (unknown) (no (unknown) (unknown) Date of visit: (units (unknown) date) 01/05/22 unknown) (unknown) (no (unknown) (unknown) Discussion: (units (un known) date) unknown) (unknown) (no (unknown) (unknown) ECOG 0 (units (unkno wn) date) unknown) (unknown) (no (unknown) (unknown) Eos # (Auto) 500 (units (unknown) date) /uL (0-450) H unknown) 12/24/21 13:27 (unknown) (no (unknown) (unknown) Eos % (Auto) 8.2 % (units (unknown) date) (2-4) H 12/24/21 unknown) 13:27 (unknown) (no (unknown) (unknown) Estimated GFR > 60 (units (unknown) date) mL/min (>60) unknown) 12/24/21 13:27 (unknown) (no (unknown) (unknown) Exam (units (unkno wn) date) unknown) (unknown) (no (unknown) (unknown) [place] [employer] (units (unknown) date) evaluated the unknown) patient in 07/2020 and referred Stephanie to [place] (unknown) (no (unknown) (unknown) Ferritin 82 ng/mL (units (unknown) date) (6-137) 12/24/21 unknown) 13:27 (unknown) (no (unknown) (unknown) Globulin 3.3 g/dL (units (unknown) date) (1.7-4.1) 12/24/21 unknown) 13:27 (unknown) (no (unknown) (unknown) Glucose 93 mg/dL (units (unknown) date) (70-100) 12/24/21 unknown) 13:27 (unknown) (no (unknown) (unknown) Gynecology as (units ( unknown) date) patient desired unknown) surgical management. (unknown) (no (unknown) (unknown) Hct 36.4 % (36-46) (units (unknown) date) 12/24/21 13:27 unknown) (unknown) (no (unknown) (unknown) Hgb 12.2 g/dL (units ( unknown) date) (12.0-16.0) unknown) 12/24/21 13:27 (unknown) (no (unknown) (unknown) History of Present (units (unknown) date) Illnes: unknown) (unknown) (no (unknown) (unknown) Hoarseness, (units (un known) date) Swollen glands unknown) (unknown) (no (unknown) (unknown) Home Medications (units (unknown) date) and Allergies unknown) (unknown) (no (unknown) (unknown) Home Medications (units (unknown) date) unknown) (unknown) (no (unknown) (unknown) I reviewed the lab (units (unknown) date) results of unknown) prothrombin and partial thromboplastin time both (unknown) (no (unknown) (unknown) I reviewed the (units (unknown) date) laboratory test unknown) results with the patient. Microcytic hypochromic (unknown) (no (unknown) (unknown) INR 1.0 (0.9-1.3) (units (unknown) date) 12/24/21 13:27 unknown) (unknown) (no (unknown) (unknown) Interval history: (units (unknown) date) unknown) (unknown) (no (unknown) (unknown) Iron 65 ug/dL (units ( unknown) date) (37-170) 12/24/21 unknown) 13:27 (unknown) (no (unknown) (unknown) [facility] (units (unknown) date) [address] unknown) [place] [address] (unknown) (no (unknown) (unknown) Laboratory Last (units (unknown) date) Values unknown) (unknown) (no (unknown) (unknown) Last Vital Signs (units (unknown) date) unknown) (unknown) (no (unknown) (unknown) Lymph # (Auto) (units (unknown) date) 1400 /uL unknown) (1827-9960) 12/24/21 13:27 (unknown) (no (unknown) (unknown) Lymph % (Auto) (units (unknown) date) 22.3 % (25-40) L unknown) 12/24/21 13:27 (unknown) (no (unknown) (unknown) MCH 28.3 PG (units (un known) date) (26-34) 12/24/21 unknown) 13:27 (unknown) (no (unknown) (unknown) MCHC 33.4 % (units (un known) date) (30-36) 12/24/21 unknown) 13:27 (unknown) (no (unknown) (unknown) MCV 84.6 fL (units (un known) date) (80-100) 12/24/21 unknown) 13:27 (unknown) (no (unknown) (unknown) Medication (units (unk nown) date) Instructions unknown) Recorded Confirmed Type (unknown) (no (unknown) (unknown) Sharkey # (Auto) 400 (units (unknown) date) /uL (0-900) unknown) 12/24/21 13:27 (unknown) (no (unknown) (unknown) Sharkey % (Auto) 6.5 (units (unknown) date) % (3-14) 12/24/21 unknown) 13:27 (unknown) (no (unknown) (unknown) Narrative: (units (unk nown) date) unknown) (unknown) (no (unknown) (unknown) Neut # (Auto) 3800 (units (unknown) date) /uL (4738-4145) unknown) 12/24/21 13:27 (unknown) (no (unknown) (unknown) Neut % (Auto) 62.5 (units (unknown) date) % (50-75) 12/24/21 unknown) 13:27 (unknown) (no (unknown) (unknown) Oncology Progress (units (unknown) date) Note unknown) (unknown) (no (unknown) (unknown) PN -Subjective (units (unknown) date) unknown) (unknown) (no (unknown) (unknown) PT 11.5 SECONDS (units (unknown) date) (10.1-12.7) unknown) 12/24/21 13:27 (unknown) (no (unknown) (unknown) Patient: (units (unkno wn) date) Stephanie Rae unknown) MR#: [id number] (unknown) (no (unknown) (unknown) Plan: (units (unkno wn) date) unknown) (unknown) (no (unknown) (unknown) Plt Count 291 (units ( unknown) date) X103/uL (150-400) unknown) 12/24/21 13:27 (unknown) (no (unknown) (unknown) Potassium 3.2 (units ( unknown) date) mmol/L (3.4-5.1) L unknown) 12/24/21 13:27 (unknown) (no (unknown) (unknown) Provider: (units (unkn own) date) Duke Decker MD unknown) (unknown) (no (unknown) (unknown) Pulse 72 01/05/22 (units (unknown) date) 12:25 unknown) (unknown) (no (unknown) (unknown) Pulse Ox 100 (units (u nknown) date) 01/05/22 12:25 unknown) (unknown) (no (unknown) (unknown) RBC 4.30 X106/uL (units (unknown) date) (4.0-5.2) 12/24/21 unknown) 13:27 (unknown) (no (unknown) (unknown) RDW 15.5 % (units (unk nown) date) (11.6-14.8) H unknown) 12/24/21 13:27 (unknown) (no (unknown) (unknown) RTC in 3 months, (units (unknown) date) CBC, CMP, iron unknown) profile, ferritin (unknown) (no (unknown) (unknown) Resp 18 01/05/22 (units (unknown) date) 12:25 unknown) (unknown) (no (unknown) (unknown) Results (units (unkno wn) date) unknown) (unknown) (no (unknown) (unknown) Rx (units (unkno wn) date) unknown) (unknown) (no (unknown) (unknown) SR Cardiovascular (units (unknown) date) issues: Chest pain, unknown) discomfort, tightness (unknown) (no (unknown) (unknown) SR Constitution: (units (unknown) date) Fatigue/Malaise unknown) (unknown) (no (unknown) (unknown) SR (units (unkno wn) date) Gastrointestinal unknown) issues: Abdominal pain (unknown) (no (unknown) (unknown) SR Musculoskeletal (units (unknown) date) issues: Joint pain unknown) or swelling, Difficulty walking (unknown) (no (unknown) (unknown) SR Neuro issues: (units (unknown) date) Numbness or unknown) tingling (unknown) (no (unknown) (unknown) SR ears, nose, (units (unknown) date) mouth, throat unknown) issues: Ears ringing, Congestion, Cough, (unknown) (no (unknown) (unknown) SR respiratory (units (unknown) date) issues: Mucous unknown) (unknown) (no (unknown) (unknown) Tatyana is a (units (unkn own) date) 46-year-old female unknown) with obesity, heavy menstrual periods, asthma, (unknown) (no (unknown) (unknown) Stephanie Rae (units (unknown) date) is a 46 year old unknown) female with history of hypertension, (unknown) (no (unknown) (unknown) Stephanie underwent (units (unknown) date) second round of unknown) weekly Venofer infusion 200 mg iv x 5 from (unknown) (no (unknown) (unknown) She was evaluated (units (unknown) date) by pot puller unknown) Jf Barrera at [place], [place] on (unknown) (no (unknown) (unknown) Signed (units (unkno wn) date) By:<Electronically unknown) signed by Duke Decker MD>01/05/22 1255 (unknown) (no (unknown) (unknown) Sodium 139 mmol/L (units (unknown) date) (137-145) 12/24/21 unknown) 13:27 (unknown) (no (unknown) (unknown) Sulfa (Sulfonamide (units (unknown) date) Allergy unknown) Intermediate SOB Verified 08/05/21 09:40 (unknown) (no (unknown) (unknown) TIBC 278 ug/dL (units (unknown) date) (265-497) 12/24/21 unknown) 13:27 (unknown) (no (unknown) (unknown) Temp 98.6 F (units (un known) date) 01/05/22 12:25 unknown) (unknown) (no (unknown) (unknown) Total Bilirubin (units (unknown) date) 0.3 mg/dL (0.2-1.3) unknown) 12/24/21 13:27 (unknown) (no (unknown) (unknown) Total Protein 7.6 (units (unknown) date) g/dL (6.3-8.2) unknown) 12/24/21 13:27 (unknown) (no (unknown) (unknown) Transferrin 214 (units (unknown) date) mg/dL (206-381) unknown) 12/24/21 13:27 (unknown) (no (unknown) (unknown) Venofer infusion (units (unknown) date) 200 mg iv x 5 from unknown) 08/27/2021 to 09/24/2021, then again second (unknown) (no (unknown) (unknown) Vital signs: (units (u nknown) date) unknown) (unknown) (no (unknown) (unknown) WBC 6.1 X103/uL (units (unknown) date) (4.5-11.0) 12/24/21 unknown) 13:27 (unknown) (no (unknown) (unknown) [SULFA (units (unkno wn) date) (SULFONAMIDE unknown) (unknown) (no (unknown) (unknown) adhesive (units (unkno wn) date) [ADHESIVE] AdvReac unknown) Mild local welt Verified 08/05/21 09:40 (unknown) (no (unknown) (unknown) advised the (units (un known) date) patient to unknown) completely stop oral iron supplementation. Patient (unknown) (no (unknown) (unknown) aerosol inhaler (units (unknown) date) (Proventil HFA) unknown) shortness of breath or wheezing (unknown) (no (unknown) (unknown) albuterol sulfate (units (unknown) date) 90 mcg/actuation 2 unknown) puff inhalation Q4-6H PRN 12/23/20 08/05/21 (unknown) (no (unknown) (unknown) anemia has (units (unk nown) date) completely unknown) resolved. The iron panels including ferritin and iron (unknown) (no (unknown) (unknown) as a result of (units (unknown) date) uterine fibroid unknown) with heavy menstrual periods. She underwent (unknown) (no (unknown) (unknown) back to [place], [place] (units (unknown) date) for follow-up. She unknown) said she was having difficulty because of (unknown) (no (unknown) (unknown) better. However (units (unknown) date) after she ran out unknown) of Provera at the end of 2020, she did not go (unknown) (no (unknown) (unknown) cholecalciferol (units (unknown) date) (vitamin D3) 25 unknown) 5,000 unit PO DAILY 11/21/20 08/05/21 History (unknown) (no (unknown) (unknown) consideration of (units (unknown) date) intravenous iron unknown) infusion for her severe iron deficiency anemia (unknown) (no (unknown) (unknown) d-mannose 500 mg (units (unknown) date) capsule mg PO unknown) 11/21/20 08/05/21 History (unknown) (no (unknown) (unknown) evaluation and (units (unknown) date) intravenous iron unknown) supplementation on an as-needed basis. But more (unknown) (no (unknown) (unknown) fluoxetine 10 mg (units (unknown) date) capsule (Prozac) 10 unknown) mg PO DAILY #90 caps 07/15/21 08/05/21 Rx (unknown) (no (unknown) (unknown) fluoxetine 20 mg (units (unknown) date) capsule (Prozac) 20 unknown) mg PO DAILY #90 caps 07/15/21 08/05/21 Rx (unknown) (no (unknown) (unknown) her OBGYN for (units ( unknown) date) consideration of unknown) treatment of vaginal bleeding as a result of (unknown) (no (unknown) (unknown) her job. (units (unkno wn) date) Thereafter, she unknown) once again has been having heavy periods, and (unknown) (no (unknown) (unknown) however continues (units (unknown) date) to have significant unknown) vaginal bleeding and she has not gone back (unknown) (no (unknown) (unknown) hyperlipidemia, (units (unknown) date) migraine, asthma, unknown) and vitamin-D deficiency. She was referred to (unknown) (no (unknown) (unknown) hypertension, and (units (unknown) date) possible sleep unknown) apnea. She was referred to our clinic for (unknown) (no (unknown) (unknown) importantly, (units (u nknown) date) patient will need unknown) to follow-up with her primary care provider and (unknown) (no (unknown) (unknown) instructed for (units (unknown) date) about 3 months. The unknown) heavy menstrual bleeding improved and were (unknown) (no (unknown) (unknown) iron deficiency is (units (unknown) date) concerned, I would unknown) recommend continued regular lab (unknown) (no (unknown) (unknown) losartan 100 1 tab (units (unknown) date) PO DAILY #90 tabs unknown) 07/15/21 08/05/21 Rx (unknown) (no (unknown) (unknown) mcg (1,000 unit) (units (unknown) date) capsule unknown) (unknown) (no (unknown) (unknown) metoprolol (units (unk nown) date) succinate 25 mg 50 unknown) mg PO DAILY #90 tabs 06/23/21 08/05/21 Rx (unknown) (no (unknown) (unknown) mg-hydrochlorothia (units (unknown) date) zide 25 mg tablet unknown) (unknown) (no (unknown) (unknown) morbid obesity, (units (unknown) date) intramural uterine unknown) fibroid and heavy menstrual periods. Dr Street (unknown) (no (unknown) (unknown) multivitamin (units (u nknown) date) (Multiple Vitamins unknown) 1 tab PO QDAY ##0 06/15/16 08/05/21 History (unknown) (no (unknown) (unknown) of which are (units (u nknown) date) within the normal unknown) range. I talked with her that it is very (unknown) (no (unknown) (unknown) our clinic for (units (unknown) date) evaluation of iron unknown) deficiency anemia. She also has history of (unknown) (no (unknown) (unknown) recommended (units (un known) date) Provera daily 10 unknown) days out of each month. Patient tried Provera as (unknown) (no (unknown) (unknown) remarkably her (units (unknown) date) cycles are very unknown) regular. (unknown) (no (unknown) (unknown) rizatriptan 10 mg (units (unknown) date) tablet 10 mg PO unknown) .prn headache #30 tabs 05/29/21 08/05/21 Rx (unknown) (no (unknown) (unknown) round of weekly (units (unknown) date) Venofer infusion unknown) 200 mg iv x 5 from 11/12/2021 to 12/10/2021 (unknown) (no (unknown) (unknown) saturation is (units ( unknown) date) within the normal unknown) range. I talked with the patient that as far as (unknown) (no (unknown) (unknown) tablet) (units (unkno wn) date) unknown) (unknown) (no (unknown) (unknown) tablet,extended (units (unknown) date) release 24 hr unknown) (unknown) (no (unknown) (unknown) to see her primary (units (unknown) date) care provider and unknown) her OBGYN for follow-up visit yet. (unknown) (no (unknown) (unknown) tolerability and (units (unknown) date) ineffective outcome unknown) with oral iron supplementation, I have (unknown) (no (unknown) (unknown) unlikely she has (units (unknown) date) any underlying unknown) bleeding disorder. (unknown) (no (unknown) (unknown) uterine fibroid. (units (unknown) date) Patient voiced unknown) understanding and agreement. (unknown) (no (unknown) (unknown) verapamil 40 mg (units (unknown) date) tablet 40 mg PO TID unknown) #270 tabs 05/29/21 08/05/21 Rx Social History No information. Vital Signs No information.
[2022-01-21] MEDS ORDERED: HYDROmorphone 1 MG/ML CARPUJECT IM STA (13:57)
[2022-01-21] MEDS ORDERED: ONDANSETRON ODT 4 MG TABLET TL STA (13:57)
[2022-01-21] MEDS ORDERED: KETOROLAC 60 MG/2 ML VIAL IM STA (13:57)
--- NOTE | 2022-01-21 13:58 | ED Physician Documentation ---
PD HPI BACK PAIN - Stated complaint Stated Complaint: BACK PX - Chief complaint Chief Complaint: Back Pain - History obtained from History obtained from: Patient - Additional information Additional information: This is a 46-year-old woman with a long history of milder back pain who presents with more severe low back pain on both sides, a bit more to the right since last night without specific injury. It hurts to move or change positions at all. Even taking a deep breath hurts. There is no associated weakness, numbness, tingling, saddle anesthesia, fevers. There is no bowel or bladder incontinence. Review of Systems Constitutional: denies: Fever, Chills Throat: reports: Reviewed and negative Cardiac: reports: Reviewed and negative Respiratory: reports: Reviewed and negative PD PAST MEDICAL HISTORY - Past Medical History Endocrine/Autoimmune: None - Present Medications Home Medications: Ambulatory Orders Medication Instructions Recorded Confirmed Cyclobenzaprine [Flexeril] 10 mg PO TID PRN #20 tablet 01/21/22 Ibuprofen [Motrin] 800 mg PO Q8H PRN #30 tablet 01/21/22 Lidocaine Patch 5% [Lidoderm Patch] 1 patch TOP DAILY PRN #10 patch 01/21/22 Oxycodone HCl/Acetaminophen 1 - 2 each PO Q6H PRN #14 tablet 01/21/22 [Percocet 5-325 mg Tablet] - Allergies Allergies/Adverse Reactions: Allergies Allergy/AdvReac Type Severity Reaction Status Date / Time codeine Allergy Nausea Verified 01/21/22 09:53 Sulfa (Sulfonamide Allergy Anaphylaxis Verified 01/21/22 09:53 Antibiotics) - Social History Does the pt smoke?: No Smoking Status: Never smoker PD ED PE NORMAL - General General: Alert and oriented X 3, Other (Comfortable at rest but winces with motion) - Abdomen Abdomen: Normal bowel sounds, Soft, Non tender - Back Back: No spinal TTP - Extremities Extremities: Other (The patient has equal and normal Achilles and patellar reflexes bilaterally. Normal sensation in all areas of the legs. Patient denies saddle anesthesia. Normal strength in flexion-extension at the ankles, knees, and flexion of the hips.) - Neuro Neuro: Alert and oriented X 3, Normal speech Results - Vitals Vitals: Vital Signs - 24 hr 01/21/22 09:48 Temperature 36.1 C L Heart Rate 75 Respiratory 16 Rate Blood Pressure 151/77 H O2 Saturation 98 Oxygen O2 Source Room air PD MEDICAL DECISION MAKING - ED course Complexity details: re-evaluated patient (After 2mg IM dilaudid and 60mg IM toradol- feeling much better) ED course: This patient has seemingly uncomplicated musculoskeletal back pain. The patient has no "red flags." Specifically denies IV drug use, fevers, incontinence, saddle anesthesia. Spinal epidural abscess was considered, given that the patient has no fever, is not diabetic, has no spinal tenderness, does not use IV drugs, and has no bilateral neurologic symptoms, the diagnosis of spinal epidural abscess is considered exceedingly unlikely. Departure - Departure Disposition: Home, Self Care Clinical Impression: Back pain Condition: Good Record reviewed to determine appropriate education?: Yes Instructions: ED Low Back Pain Injury Prescriptions: Cyclobenzaprine [Flexeril] 10 mg PO TID PRN #20 tablet PRN Reason: Spasms Lidocaine Patch 5% [Lidoderm Patch] 1 patch TOP DAILY PRN #10 patch PRN Reason: pain Ibuprofen [Motrin] 800 mg PO Q8H PRN #30 tablet PRN Reason: PAIN &/OR FEVER Oxycodone HCl/Acetaminophen [Percocet 5-325 mg Tablet] 1 - 2 each PO Q6H PRN #14 tablet PRN Reason: pain Comments: [facility] [place] Follow-up with your doctor and return home for reevaluation and less completely symptom-free. I am prescribing a short course of narcotic pain medication for you. These are potentially dangerous and addictive medications that should be used carefully. These medications may constipate you. Take an [id number] stool softener (docusate) twice daily with plenty of water while taking these medications. If you go 24 hours without a bowel movement, take [id number] miralax, per package instructions. Do not drink or drive while taking these medications. If you received narcotic or sedating medications while in the emergency department, do not drive for 24 hours. Store this medication in a safe, secure place and out of reach of children. It is a violation of federal law to give or sell this medication to another person or to use in a manner other than prescribed. The ED will not refill narcotic prescriptions, including prescriptions lost or stolen. To dispose of unwanted medications: 1. [facility] [address] in [place] has a medication drop box. They accept prescription medications (in pill form) Wednesday through Wednesday 9:00 a.m. to 5:00 p.m. 2. The [facility] [employer] accepts prescription medications (in pill form only) for disposal year round. Call for more information. 3. Contact the [facility] for the next [facility] sponsored prescription drug collection event. , [phone], or [phone]; Note that many narcotic pain relievers also contain Tylenol/acetaminophen. Ple ase ensure that your total dose of acetaminophen from all sources does not exceed 3 g (3000 mg) per day. Forms: Activity restrictions Discharge Date/Time: 01/21/22 15:13
== END 2022-01-21 15:13 | disposition home or self-care (01) ==
LOC: ED 09:44
DX: M54.50 Low back pain, unspecified (principal)
CPT/HCPCS: 96372; 99282; 99284; J1170; Q0162